=== PATIENT | male | born 1950 | race Two or more races ===

== ENCOUNTER 2017-08-10 20:24 | Inpatient (IN) | payer MEDICAID, OTHER ==
[~2017-08-10] VITALS: Ht 157.5 cm; Wt 70.3 kg
[2017-08-10 20:50] VITALS: BP 148/96
[2017-08-10] MEDS ORDERED: Sodium Chloride 500ML 500 ML IV ONE (20:52)
--- NOTE | 2017-08-10 21:12 | Emergency Room Report ---
History of Present Illness General Chief Complaint: General Complaint Source: Patient Present Illness HPI Patient initially presents with complaints of headache Reports off-and-on over the past several days He has had headaches before in the past Denies any chest pain or shortness of breath However while here patient also reports significant social problems stating that when he lives is not comfortable He is having difficulty going and coming from the facility Patient also complains of some general weakness Allergies: Coded Allergies: No Known Allergies (Unverified , 08/10/17) Patient History Past Medical History: see triage record Pertinent Family History: none Reviewed Nursing Documentation: PMH: Agreed, PSxH: Agreed Nursing Documentation-PMH Hx Cardiac Problems: Yes Hx Pacemaker: Yes Hx Diabetes: Yes Review of Systems All Other Systems: negative except mentioned in HPI Physical Exam Vital Signs Date Time Temp Pulse Resp B/P (MAP) Pulse Ox O2 Delivery O2 Flow Rate FiO2 08/10/17 20:26 98.8 90 16 148/96 99 Room Air Sp02 EP Interpretation: reviewed, normal General Appearance: no apparent distress Head: normocephalic, atraumatic Eyes: bilateral eye PERRL, bilateral eye EOMI ENT: hearing grossly normal, normal pharynx, TMs + canals normal, uvula midline Neck: full range of motion, supple, no meningismus, no bony tend Respiratory: lungs clear, normal breath sounds, no rhonchi, no respiratory distress, no retraction, no accessory muscle use Cardiovascular #1: normal peripheral pulses, regular rate, rhythm, no edema, no gallop, no JVD, no murmur Gastrointestinal: normal bowel sounds, non tender, soft, no mass, no organomegaly, non-distended, no guarding, no hernia, no pulsatile mass, no rebound Genitourinary: no CVA tenderness Musculoskeletal: normal inspection - Arthritic joints, patient and was with a walker no obvious focal deficit on exam Neurologic: oriented x3, responsive, terminal worker III-XII nml as tested, motor strength/ tone normal, sensory intact Psychiatric: mood/affect normal Skin: normal color, no rash, warm/dry, palpation normal Lymphatic: normal inspection, no adenopathy Medical Decision Making Diagnostic Impression: Primary Impression: Renal failure Additional Impressions: Elevated troponin I level Hyperkalemia ER Course Patient is a fairly complex patient with multiple differential to consideration including but not limited to cardiac cardiopulmonary and vascular emergencies Patient's blood work reveals elevated potassium Kidney function is abnormal We do not have any other blood work to compare this to patient is somewhat of a poor historian and cannot provide previous medical history At this time requires admission for further care Labs Test 08/10/17 21:16 White Blood Count 7.4 K/UL (4.8-10.8) Red Blood Count 3.79 M/UL (4.70-6.10) Hemoglobin 10.2 G/DL (14.2-18.0) Hematocrit 33.3 % (42.0-52.0) Mean Corpuscular Volume 88 FL (80-99) Mean Corpuscular Hemoglobin 27.0 PG (27.0-31.0) Mean Corpuscular Hemoglobin Concent 30.8 G/DL (32.0-36.0) Red Cell Distribution Width 13.7 % (11.6-14.8) Platelet Count 161 K/UL (150-450) Mean Platelet Volume 6.7 FL (6.5-10.1) Neutrophils (%) (Auto) 70.1 % (45.0-75.0) Lymphocytes (%) (Auto) 14.4 % (20.0-45.0) Monocytes (%) (Auto) 11.7 % (1.0-10.0) Eosinophils (%) (Auto) 2.4 % (0.0-3.0) Basophils (%) (Auto) 1.4 % (0.0-2.0) Urine Color Pale yellow Urine Appearance Slightly cloudy Urine pH 6 (4.5-8.0) Urine Specific [place] 1.015 (1.005-1.035) Urine Protein 4+ (NEGATIVE) Urine Glucose (UA) 1+ (NEGATIVE) Urine Ketones Negative (NEGATIVE) Urine Occult Blood 3+ (NEGATIVE) Urine Nitrite Negative (NEGATIVE) Urine Bilirubin Negative (NEGATIVE) Urine Urobilinogen Normal MG/DL (0.0-1.0) Urine Leukocyte Esterase Negative (NEGATIVE) Urine RBC 5-10 /HPF (0 - 0) Urine WBC 0 /HPF (0 - 0) Urine Squamous Epithelial Cells None /LPF (NONE/OCC) Urine Amorphous Sediment Many /LPF (NONE) Urine Bacteria Moderate /HPF (NONE) Sodium Level 137 MMOL/L (136-145) Potassium Level 5.2 MMOL/L (3.5-5.1) Chloride Level 106 MMOL/L (98-107) Carbon Dioxide Level 20 MMOL/L (21-32) Anion Gap 11 mmol/L (5-15) Blood Urea Nitrogen 62 mg/dL (7-18) Creatinine 2.3 MG/DL (0.55-1.30) Estimat Glomerular Filtration Rate 28.7 mL/min (>60) Glucose Level 227 MG/DL (74-106) Calcium Level 8.5 MG/DL (8.5-10.1) Total Bilirubin 0.4 MG/DL (0.2-1.0) Aspartate Amino Transf (AST/SGOT) 23 U/L (15-37) Alanine Aminotransferase (ALT/SGPT) 17 U/L (12-78) Alkaline Phosphatase 124 U/L (46-116) Total Creatine Kinase 471 U/L (26-308) Creatine Kinase MB 16.2 NG/ML (0.0-3.6) Creatine Kinase MB Relative Index 3.4 Troponin I 0.389 ng/mL (0.000-0.056) Total Protein 7.9 G/DL (6.4-8.2) Albumin 3.4 G/DL (3.4-5.0) Globulin 4.5 g/dL Albumin/Globulin Ratio 0.8 (1.0-2.7) Lipase 239 U/L (73-393) EKG Diagnostic Results Rate: normal Rhythm: NSR ST Segments: other - Prolonged QRS with left bundle branch block ASA given to the pt in ED: Yes Rhythm Strip Diag. Results EP Interpretation: yes Rate: 77 Rhythm: NSR, no PVC's, no ectopy, other - prolonged QRS Chest X-Ray Diagnostic Results Chest X-Ray Diagnostic Results : Chest X-Ray Ordered: Yes # of Views/Limited/Complete: 1 View Indication: Chest Pain EP Interpretation: Yes Interpretation: no consolidation, no effusion, no pneumothorax Impression: No acute disease Electronically Signed by: John Jaimes DO CT/MRI/US Diagnostic Results CT/MRI/US Diagnostic Results : Impression CT head no acute disease Last Vital Signs Date Time Temp Pulse Resp B/P (MAP) Pulse Ox O2 Delivery O2 Flow Rate FiO2 08/10/17 20:26 98.8 90 16 148/96 99 Room Air Status: improved Disposition: ADMITTED INPATIENT Condition: Improved JOHN JAIMESO. Aug 10, 2017 21:12
[2017-08-10 21:24] LABS: BASOPHILS % (AUTO) 1.4 % (0.0-2.0); EOSINOPHILS % (AUTO) 2.4 % (0.0-3.0); LYMPHOCYTES % (AUTO) 14.4 % (20.0-45.0); MEAN CORPUSCULAR HGB CONC 30.8 G/DL (32.0-36.0); MEAN CORPUSCULAR VOLUME 88 FL (80-99); MEAN PLATELET VOLUME 6.7 FL (6.5-10.1); MONOCYTES % (AUTO) 11.7 % (1.0-10.0); NEUTROPHILS % (AUTO) 70.1 % (45.0-75.0); PLATELET COUNT 161 K/UL (150-450); RED BLOOD COUNT 3.79 M/UL (4.70-6.10); RED CELL DISTRIBUTION WIDTH 13.7 % (11.6-14.8); WHITE BLOOD COUNT 7.4 K/UL (4.8-10.8)
[2017-08-10 21:39] LABS: ANION GAP 11 mmol/L (5-15); CALCIUM 8.5 MG/DL (8.5-10.1); CARBON DIOXIDE 20 MMOL/L (21-32); CHLORIDE 106 MMOL/L (98-107); CREATININE 2.3 MG/DL (0.55-1.30); GLOMERULAR FILTRATION RATE 28.7 mL/min (>60); POTASSIUM 5.2 MMOL/L (3.5-5.1); SODIUM 137 MMOL/L (136-145)
[2017-08-10 21:52] LABS: ALANINE AMINOTRANSFERASE 17 U/L (12-78); ALBUMIN/GLOBULIN RATIO 0.8 (1.0-2.7); ASPARTATE AMINO TRANSFERASE 23 U/L (15-37); CKMB 16.2 NG/ML (0.0-3.6); LIPASE 239 U/L (73-393); TOTAL PROTEIN 7.9 G/DL (6.4-8.2)
[2017-08-10] MEDS ORDERED: Sodium Polystyrene Sulfonate 15gm Powder ORAL ONE (22:45)
[2017-08-10 23:34] VITALS: BP 142/67
[2017-08-11] VITALS (10 sets, daily range): BP systolic 103–175; BP diastolic 65–99
[2017-08-11 00:05] LABS: APPEARANCE,URINE SLIGHTLY CLOUDY; KETONES,URINE NEGATIVE (NEGATIVE); LEUKOCYTE ESTERASE ,URINE NEGATIVE (NEGATIVE); NITRITE,URINE NEGATIVE (NEGATIVE); PH,URINE 6 (4.5-8.0); PROTEIN,URINE 4+ (NEGATIVE); UROBILINOGEN,URINE NORMAL MG/DL (0.0-1.0)
[2017-08-11] MEDS ORDERED: UNOBMED (00:05)
[2017-08-11 00:15] LABS: AMORPHOUS SEDIMENT,UR MANY /LPF; BACTERIA,URINE MODERATE /HPF; WBC,URINE 0 /HPF (0 - 0)
[2017-08-11] MEDS ORDERED: Miralax 17gm pkt ORAL PRN (06:45)
[2017-08-11] MEDS ORDERED: Albuterol/Ipratropium 3ml neb HHN PRN (06:45)
[2017-08-11] MEDS ORDERED: Morphine Sulfate 2mg/ml Inj IVP PRN ×2 (06:45→08:15)
[2017-08-11] MEDS ORDERED: Vancomycin 1 GM in D5W 275 ML IVPB ONE (08:00)
[2017-08-11] MEDS ORDERED: Cefepime HCl 2 GM in D5W 110 ML IV SCH (09:00)
[2017-08-11] MEDS ORDERED: Cefepime 1gm in D5W 55ml IVPB SCH (09:00)
[2017-08-11] MEDS: Heparin 5000 units/ml inj SUBQ SCH ×2 (10:00→21:06)
--- NOTE | 2017-08-11 10:17 | Diagnostic Imaging Report ---
Indication: Headache Technique: Contiguous 5 mm thick transaxial imaging of the head obtained in a Siemens Sensation [address] scanner. Soft tissue and bone windows generated. Automatic Exposure Control was utilized. Total Dose length Product (DLP): [address] Dose Index Volume (CTDIvol): 70.38, 0.15 mGy Comparison: none Findings: There is mild prominence of the ventricles, basal cisterns, and cerebral sulci consistent with atrophy. Mild, nonspecific, white matter hypoattenuation is noted throughout the brain consistent with chronic small vessel disease. There is no midline shift, edema, acute hemorrhage, mass effect, or abnormal extra-axial fluid collections. Bones and extra osseous soft tissues are unremarkable. Impression: No acute intracranial bleed, mass effect or edema. Mild atrophy of the brain. Nonspecific white matter hypoattenuation probably due to chronic small vessel disease. [facility] has communicated the preliminary results to the Emergency Department. Their findings are largely concordant with this report. The CT scanner at [facility] is accredited by the [place] [employer] and the scans are performed using dose optimization techniques as appropriate to a performed exam including Automatic Exposure control.
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
--- NOTE | 2017-08-11 10:47 | Consultation ---
Consult Note Consult Note Asked to eval for high Cr Patient initially presents with complaints of headache Reports off-and-on over the past several days He has had headaches before in the past Denies any chest pain or shortness of breath However while here patient also reports significant social problems stating that when he lives is not comfortable He is having difficulty going and coming from the facility Patient also complains of some general weakness Hx Cardiac Problems: Yes Hx Pacemaker: Yes Hx Diabetes: Yes Assessment/Plan status: Renal failure and proteinuria Likely Diabetic Nephropathy CAD DM HTN Anemia Plan: Change diet to med CHO Gastric support monitor renal parameters- avoid nephrotoxics- Kidney SCARLET 2D echo anemia MOUNIKA De Dios Aug 11, 2017 10:47
--- NOTE | 2017-08-11 12:04 | Diagnostic Imaging Report ---
Indication: Chest pain Comparison: None A single view chest radiograph was obtained. Findings: No definite infiltrate or pulmonary vascular congestion identified. Pacemaker noted on the left side. 2 leads are present one projects over the right atrium and the other projected over the right ventricle. The heart is enlarged. The aorta is mildly enlarged consistent with atherosclerotic vascular disease. The bones are osteopenic. Impression: No acute disease
[2017-08-11] MEDS: Docusate 100mg cap ORAL SCH ×2 (12:12→17:32)
--- NOTE | 2017-08-11 12:40 | History and Physical ---
History of Present Illness General Date patient seen: Aug 11, 2017 Reason for Hospitalization: General Complaint Present Illness HPI 67 year old male with hx of DM, pacemaker presented to ER with complaints of headache, off-and-on over the past several days Patient also complains of some general weakness. He was found to be in renal failure and positive troponin. Allergies: Coded Allergies: No Known Allergies (Unverified , 08/10/17) Medication History Miscellaneous Medications Unable to Obtain Medications (Unable To Obtain Meds), (Reported) Patient History Healthcare decision maker Resuscitation status Full Code Advanced Directive on File Past Medical/Surgical History Past Medical/Surgical History: (1) History of pacemaker Review of Systems Constitutional: Reports: malaise, weakness All Other Systems: negative except mentioned in HPI Physical Exam General Appearance: WD/WN Lines, tubes and drains: peripheral, PICC HEENT: normocephalic, atraumatic Neck: non-tender, normal alignment Respiratory/Chest: chest wall non-tender, lungs clear Breasts: no masses Cardiovascular/Chest: normal peripheral pulses Abdomen: normal bowel sounds Genitourinary/Rectal: normal genital exam, heme negative stool Extremities: normal range of motion Last 24 Hour Vital Signs Date Time Temp Pulse Resp B/P (MAP) Pulse Ox O2 Delivery O2 Flow Rate FiO2 08/11/17 12:00 97.5 84 19 141/91 Nasal Cannula 2.0 08/11/17 08:00 97.0 85 19 154/72 98 Nasal Cannula 2.0 08/11/17 04:40 98.6 65 18 147/74 96 Nasal Cannula 08/11/17 04:20 97.0 74 20 103/65 96 Room Air 08/11/17 04:00 73 08/11/17 01:35 98.8 82 12 145/75 98 Room Air 08/11/17 01:30 98.5 78 18 155/67 99 Room Air 08/11/17 00:57 98.8 82 12 156/75 98 Room Air 08/11/17 00:18 98.8 90 16 162/83 99 Room Air 08/10/17 23:34 98.8 88 20 142/67 95 Room Air 08/10/17 20:50 98.8 16 148/96 99 Room Air 08/10/17 20:26 98.8 90 16 148/96 99 Room Air Laboratory Tests Test 08/10/17 21:16 08/11/17 07:20 White Blood Count 7.4 K/UL (4.8-10.8) Red Blood Count 3.79 M/UL (4.70-6.10) L Hemoglobin 10.2 G/DL (14.2-18.0) L Hematocrit 33.3 % (42.0-52.0) L Mean Corpuscular Volume 88 FL (80-99) Mean Corpuscular Hemoglobin 27.0 PG (27.0-31.0) Mean Corpuscular Hemoglobin Concent 30.8 G/DL (32.0-36.0) L Red Cell Distribution Width 13.7 % (11.6-14.8) Platelet Count 161 K/UL (150-450) Mean Platelet Volume 6.7 FL (6.5-10.1) Neutrophils (%) (Auto) 70.1 % (45.0-75.0) Lymphocytes (%) (Auto) 14.4 % (20.0-45.0) L Monocytes (%) (Auto) 11.7 % (1.0-10.0) H Eosinophils (%) (Auto) 2.4 % (0.0-3.0) Basophils (%) (Auto) 1.4 % (0.0-2.0) Urine Color Pale yellow Urine Appearance Slightly cloudy Urine pH 6 (4.5-8.0) Urine Specific [place] 1.015 (1.005-1.035) Urine Protein 4+ (NEGATIVE) H Urine Glucose (UA) 1+ (NEGATIVE) H Urine Ketones Negative (NEGATIVE) Urine Occult Blood 3+ (NEGATIVE) H Urine Nitrite Negative (NEGATIVE) Urine Bilirubin Negative (NEGATIVE) Urine Urobilinogen Normal MG/DL (0.0-1.0) Urine Leukocyte Esterase Negative (NEGATIVE) Urine RBC 5-10 /HPF (0 - 0) H Urine WBC 0 /HPF (0 - 0) Urine Squamous Epithelial Cells None /LPF (NONE/OCC) Urine Amorphous Sediment Many /LPF (NONE) H Urine Bacteria Moderate /HPF (NONE) H Sodium Level 137 MMOL/L (136-145) Potassium Level 5.2 MMOL/L (3.5-5.1) H Chloride Level 106 MMOL/L (98-107) Carbon Dioxide Level 20 MMOL/L (21-32) L Anion Gap 11 mmol/L (5-15) Blood Urea Nitrogen 62 mg/dL (7-18) H Creatinine 2.3 MG/DL (0.55-1.30) H Estimat Glomerular Filtration Rate 28.7 mL/min (>60) Glucose Level 227 MG/DL (74-106) H Calcium Level 8.5 MG/DL (8.5-10.1) Total Bilirubin 0.4 MG/DL (0.2-1.0) Aspartate Amino Transf (AST/SGOT) 23 U/L (15-37) Alanine Aminotransferase (ALT/SGPT) 17 U/L (12-78) Alkaline Phosphatase 124 U/L (46-116) H Total Creatine Kinase 471 U/L (26-308) H 336 U/L (26-308) H Creatine Kinase MB 16.2 NG/ML (0.0-3.6) H Creatine Kinase MB Relative Index 3.4 Troponin I 0.389 ng/mL (0.000-0.056) Total Protein 7.9 G/DL (6.4-8.2) Albumin 3.4 G/DL (3.4-5.0) Globulin 4.5 g/dL Albumin/Globulin Ratio 0.8 (1.0-2.7) L Lipase 239 U/L (73-393) Uric Acid 6.0 MG/DL (2.6-7.2) Height (Feet): 5 Height (Inches): 2.00 Weight (Pounds): 155 Medications Current Medications Medications (Trade) Dose Ordered Sig/Arlet Route PRN Reason Start Time Stop Time Status Last Admin Dose Admin Acetaminophen (Tylenol) 650 mg Q4H PRN ORAL fever 08/11/17 06:45 09/10/17 06:44 Albuterol/ Ipratropium (Albuterol/ Ipratropium) 3 ml EVERY 4 HOURS PRN HHN Shortness of Breath 08/11/17 06:45 08/16/17 06:44 Cefepime HCl 1 gm/ Dextrose 55 ml @ 110 mls/hr DAILY IVPB 08/11/17 09:00 08/18/17 08:59 08/11/17 09:56 Docusate Sodium (Colace) 100 mg TWICE A DAY ORAL 08/11/17 11:15 09/10/17 11:14 08/11/17 12:12 Heparin Sodium (Porcine) (Heparin 5000 units/ml) 5,000 units EVERY 12 HOURS SUBQ 08/11/17 09:00 09/10/17 08:59 08/11/17 10:00 Lansoprazole (Prevacid) 30 mg DAILY ORAL 08/11/17 11:30 09/10/17 11:29 08/11/17 12:12 Morphine Sulfate (Morphine Sulfate) 2 mg Q4H PRN IVP Moderate Pain (Pain Scale 4-6) 08/11/17 08:15 08/18/17 06:44 Ondansetron HCl (Zofran) 4 mg Q6H PRN IVP Nausea & Vomiting 08/11/17 06:45 09/10/17 06:44 Phenazopyridine HCl (Pyridium) 100 mg DAILY PRN ORAL dysuria 08/11/17 06:45 09/10/17 06:44 Polyethylene Glycol (Miralax) 17 gm DAILYPRN PRN ORAL Constipation 08/11/17 06:45 09/10/17 06:44 Sodium Chloride 1,000 ml @ 75 mls/hr [id number] IV 08/11/17 06:45 09/10/17 06:44 08/11/17 09:57 Tamsulosin HCl (Flomax) 0.4 mg BEDTIME ORAL 08/11/17 21:00 09/10/17 20:59 Temazepam (Restoril) 15 mg HSPRN PRN ORAL Insomnia 08/11/17 06:45 08/18/17 06:44 Vancomycin HCl 1 gm/Dextrose 275 ml @ 183.708 mls/hr Q36H IVPB 08/12/17 20:00 08/17/17 19:59 Assessment/Plan Problem List: (1) UTI (urinary tract infection) ICD Codes: N39.0 - Urinary tract infection, site not specified SNOMED: 10948519 (2) Non-ST elevated myocardial infarction ICD Codes: I21.4 - Non-ST elevation (NSTEMI) myocardial infarction SNOMED: 338540440 (3) Hyperkalemia ICD Codes: E87.5 - Hyperkalemia SNOMED: 38456121 (4) Renal failure ICD Codes: N19 - Unspecified kidney failure SNOMED: 49398404 (5) History of pacemaker ICD Codes: Z95.0 - Presence of cardiac pacemaker SNOMED: 814489533 Assessment/Plan serial ekg, troponin cardiology to see check K Renal and Cardio to see. MADHAV WALLACE Aug 11, 2017 12:40
--- NOTE | 2017-08-11 13:21 | Cardiology Progress Note ---
Assessment/Plan Assessment/Plan [id number] Objective Last 24 Hour Vital Signs Date Time Temp Pulse Resp B/P (MAP) Pulse Ox O2 Delivery O2 Flow Rate FiO2 08/11/17 12:00 97.5 84 19 141/91 Nasal Cannula 2.0 08/11/17 08:00 97.0 85 19 154/72 98 Nasal Cannula 2.0 08/11/17 04:40 98.6 65 18 147/74 96 Nasal Cannula 08/11/17 04:20 97.0 74 20 103/65 96 Room Air 08/11/17 04:00 73 08/11/17 01:35 98.8 82 12 145/75 98 Room Air 08/11/17 01:30 98.5 78 18 155/67 99 Room Air 08/11/17 00:57 98.8 82 12 156/75 98 Room Air 08/11/17 00:18 98.8 90 16 162/83 99 Room Air 08/10/17 23:34 98.8 88 20 142/67 95 Room Air 08/10/17 20:50 98.8 16 148/96 99 Room Air 08/10/17 20:26 98.8 90 16 148/96 99 Room Air Laboratory Tests Test 08/10/17 21:16 08/11/17 07:20 White Blood Count 7.4 K/UL (4.8-10.8) Red Blood Count 3.79 M/UL (4.70-6.10) L Hemoglobin 10.2 G/DL (14.2-18.0) L Hematocrit 33.3 % (42.0-52.0) L Mean Corpuscular Volume 88 FL (80-99) Mean Corpuscular Hemoglobin 27.0 PG (27.0-31.0) Mean Corpuscular Hemoglobin Concent 30.8 G/DL (32.0-36.0) L Red Cell Distribution Width 13.7 % (11.6-14.8) Platelet Count 161 K/UL (150-450) Mean Platelet Volume 6.7 FL (6.5-10.1) Neutrophils (%) (Auto) 70.1 % (45.0-75.0) Lymphocytes (%) (Auto) 14.4 % (20.0-45.0) L Monocytes (%) (Auto) 11.7 % (1.0-10.0) H Eosinophils (%) (Auto) 2.4 % (0.0-3.0) Basophils (%) (Auto) 1.4 % (0.0-2.0) Urine Color Pale yellow Urine Appearance Slightly cloudy Urine pH 6 (4.5-8.0) Urine Specific [place] 1.015 (1.005-1.035) Urine Protein 4+ (NEGATIVE) H Urine Glucose (UA) 1+ (NEGATIVE) H Urine Ketones Negative (NEGATIVE) Urine Occult Blood 3+ (NEGATIVE) H Urine Nitrite Negative (NEGATIVE) Urine Bilirubin Negative (NEGATIVE) Urine Urobilinogen Normal MG/DL (0.0-1.0) Urine Leukocyte Esterase Negative (NEGATIVE) Urine RBC 5-10 /HPF (0 - 0) H Urine WBC 0 /HPF (0 - 0) Urine Squamous Epithelial Cells None /LPF (NONE/OCC) Urine Amorphous Sediment Many /LPF (NONE) H Urine Bacteria Moderate /HPF (NONE) H Sodium Level 137 MMOL/L (136-145) Potassium Level 5.2 MMOL/L (3.5-5.1) H Chloride Level 106 MMOL/L (98-107) Carbon Dioxide Level 20 MMOL/L (21-32) L Anion Gap 11 mmol/L (5-15) Blood Urea Nitrogen 62 mg/dL (7-18) H Creatinine 2.3 MG/DL (0.55-1.30) H Estimat Glomerular Filtration Rate 28.7 mL/min (>60) Glucose Level 227 MG/DL (74-106) H Calcium Level 8.5 MG/DL (8.5-10.1) Total Bilirubin 0.4 MG/DL (0.2-1.0) Aspartate Amino Transf (AST/SGOT) 23 U/L (15-37) Alanine Aminotransferase (ALT/SGPT) 17 U/L (12-78) Alkaline Phosphatase 124 U/L (46-116) H Total Creatine Kinase 471 U/L (26-308) H 336 U/L (26-308) H Creatine Kinase MB 16.2 NG/ML (0.0-3.6) H Creatine Kinase MB Relative Index 3.4 Troponin I 0.389 ng/mL (0.000-0.056) Total Protein 7.9 G/DL (6.4-8.2) Albumin 3.4 G/DL (3.4-5.0) Globulin 4.5 g/dL Albumin/Globulin Ratio 0.8 (1.0-2.7) L Lipase 239 U/L (73-393) Uric Acid 6.0 MG/DL (2.6-7.2) KHURRAM SAN Aug 11, 2017 13:21
--- NOTE | 2017-08-11 15:03 | Cardiology Report ---
APPROVED REPORT EXAM: Two-dimensional and M-mode echocardiogram with Doppler and color Doppler. INDICATION Congestive Heart Failure M-Mode DIMENSIONS Left Atrium (MM)4.3 (1.6-4.0cm) Aortic Root3.7 (2.0-3.7cm) Aortic Cusp Exc.2.0 (1.5-2.0cm) Technically difficult study due to poor acoustical windows. M-mode measurements not obtainable due to cardiac structure. Normal left ventricular chamber size, systolic function and wall motion. Left ventricular ejection fraction estimated to be 65-7%. No evidence of left ventricular hypertrophy. Small posterior pericardial effusion. All other cardiac chamber sizes are within normal limits. Focal aortic valve sclerosis with adequate cusp excursion. Thickened mitral valve leaflets with normal excursion. Mild mitral annulus and aortic root calcification. Pulmonic valve not well visualized. Normal tricuspid valve structure. IVC is normal in size and collapsible with respiration. pacemaker wire present in the right side chambers. A color flow and spectral Doppler study was performed and revealed: No aortic regurgitation. No mitral regurgitation. Mitral diastolic velocities suggest reduced left ventricular relaxation c/w diastolic dysfunction grade 1. No tricuspid regurgitation.
--- NOTE | 2017-08-11 15:36 | Cardiology Report ---
APPROVED REPORT EKG Measurement Heart [id number] Normal sinus rhythm Left axis deviation v pacing
[2017-08-11] MEDS ORDERED: Tamsulosin 0.4mg cap ORAL SCH (21:00)
[2017-08-11] MEDS: NovoLOG Insulin Flexpen SUBQ SCH (21:05)
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
[2017-08-12 00:37] VITALS: BP 156/89
[2017-08-12 04:26] VITALS: BP 150/78
[2017-08-12] MEDS: NovoLOG Insulin Flexpen SUBQ SCH ×4 (06:27→21:41)
[2017-08-12 06:34] LABS: BASOPHILS % (AUTO) 0.9 % (0.0-2.0); EOSINOPHILS % (AUTO) 4.2 % (0.0-3.0); MEAN CORPUSCULAR HEMOGLOBIN 30.4 PG (27.0-31.0); MEAN CORPUSCULAR HGB CONC 34.7 G/DL (32.0-36.0); MEAN CORPUSCULAR VOLUME 88 FL (80-99); MEAN PLATELET VOLUME 7.5 FL (6.5-10.1); MONOCYTES % (AUTO) 9.4 % (1.0-10.0); NEUTROPHILS % (AUTO) 65.5 % (45.0-75.0); PLATELET COUNT 162 K/UL (150-450); RED BLOOD COUNT 3.24 M/UL (4.70-6.10); RED CELL DISTRIBUTION WIDTH 14.3 % (11.6-14.8); WHITE BLOOD COUNT 6.1 K/UL (4.8-10.8)
[2017-08-12 07:22] LABS: IRON 30 ug/dL (50-175); TOTAL IRON BINDING CAPACITY 242 ug/dL (250-450)
[2017-08-12 07:26] LABS: CRP QUANT 3.7 mg/dL (0.00-0.90); MAGNESIUM 2.3 MG/DL (1.8-2.4); PHOSPHORUS 3.8 MG/DL (2.5-4.9); URIC ACID 5.6 MG/DL (2.6-7.2)
[2017-08-12 07:40] LABS: ALANINE AMINOTRANSFERASE 17 U/L (12-78); ALBUMIN/GLOBULIN RATIO 0.7 (1.0-2.7); ANION GAP 9 mmol/L (5-15); ASPARTATE AMINO TRANSFERASE 17 U/L (15-37); CARBON DIOXIDE 24 MMOL/L (21-32); CHLORIDE 111 MMOL/L (98-107); CHOLESTEROL 140 MG/DL (< 200); CHOLESTEROL/HDL RATIO 1.9 (3.3-4.4); CREATININE 1.9 MG/DL (0.55-1.30); FERRITIN 82 NG/ML (8-388); GLOMERULAR FILTRATION RATE 35.8 mL/min (>60); POTASSIUM 3.6 MMOL/L (3.5-5.1); SODIUM 144 MMOL/L (136-145); THYROID STIMULATING HORMONE 2.004 uiU/mL (0.358-3.740); TOTAL PROTEIN 6.8 G/DL (6.4-8.2)
[2017-08-12 07:51] LABS: FOLIC ACID 14.2 NG/ML (3.1-17.5)
[2017-08-12 08:59] VITALS: BP 157/81
[2017-08-12] MEDS: Docusate 100mg cap ORAL SCH ×3 (09:26→17:21)
[2017-08-12] MEDS: Heparin 5000 units/ml inj SUBQ SCH ×2 (09:29→21:38)
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
--- NOTE | 2017-08-12 11:24 | Nephrology Progress Note ---
Assessment/Plan Problem List: (1) Renal failure (2) Non-ST elevated myocardial infarction (3) Elevated troponin I level Assessment Renal failure and proteinuria Likely Diabetic Nephropathy CAD DM HTN Anemia Plan Plan: IV iron Change diet to med CHO Gastric support monitor renal parameters- avoid nephrotoxics- Kidney SCARLET: pending 2D echo: Left ventricular ejection fraction estimated to be 65-7%. No evidence of left ventricular hypertrophy. anemia mejia Subjective ROS Limited/Unobtainable: No Constitutional: Reports: malaise Objective Objective Last 24 Hour Vital Signs Date Time Temp Pulse Resp B/P (MAP) Pulse Ox O2 Delivery O2 Flow Rate FiO2 08/12/17 08:59 97.7 101 18 157/81 99 Room Air 08/12/17 08:00 101 08/12/17 07:55 99 20 Room Air 21 08/12/17 04:26 98.1 97 20 150/78 91 Room Air 08/12/17 04:00 95 08/12/17 00:37 97.3 100 23 156/89 94 Room Air 08/12/17 00:00 101 08/11/17 22:00 99 18 151/74 99 Room Air 08/11/17 20:00 97.0 100 22 175/99 99 Room Air 08/11/17 20:00 92 20 Room Air 21 08/11/17 20:00 105 08/11/17 16:00 100 08/11/17 16:00 98.1 101 20 153/87 97 Nasal Cannula 2.0 08/11/17 12:00 86 08/11/17 12:00 97.5 84 19 141/91 Nasal Cannula 2.0 Intake and Output 08/12/17 08/13/17 19:00 07:00 Intake Total 360 ml Balance 360 ml Intake Oral 360 ml # Bowel Movements 1 Laboratory Tests 08/11/17 13:34: Troponin I 0.404H 08/12/17 05:10: Troponin I 0.578H, White Blood Count 6.1, Red Blood Count 3.24L, Hemoglobin 9.8L , Hematocrit 28.4L, Mean Corpuscular Volume 88, Mean Corpuscular Hemoglobin 30.4 , Mean Corpuscular Hemoglobin Concent 34.7, Red Cell Distribution Width 14.3, Platelet Count 162, Mean Platelet Volume 7.5, Neutrophils (%) (Auto) 65.5, Lymphocytes (%) (Auto) 20.0, Monocytes (%) (Auto) 9.4, Eosinophils (%) (Auto) 4.2H, Basophils (%) (Auto) 0.9, Sodium Level 144, Potassium Level 3.6, Chloride Level 111H, Carbon Dioxide Level 24, Anion Gap 9, Blood Urea Nitrogen 41H, Creatinine 1.9H, Estimat Glomerular Filtration Rate 35.8, Glucose Level 175H, Hemoglobin A1c 7.0H, Uric Acid 5.6, Calcium Level 8.0L, Phosphorus Level 3.8, Magnesium Level 2.3, Iron Level 30L, Total Iron Binding Capacity 242L, Percent Iron Saturation 12L, Unsaturated Iron Binding 212, Ferritin 82, Total Bilirubin 0.3, Gamma Glutamyl Transpeptidase 23, Aspartate Amino Transf (AST/SGOT) 17, Alanine Aminotransferase (ALT/SGPT) 17, Alkaline Phosphatase 106, Total Creatine Kinase 224, C-Reactive Protein, Quantitative 3.7H, Pro-B-Type Natriuretic Peptide 4235H, Total Protein 6.8, Albumin 2.7L, Globulin 4.1, Albumin/Globulin Ratio 0.7L, Triglycerides Level 93, Cholesterol Level 140, LDL Cholesterol 58, HDL Cholesterol 73H, Cholesterol/HDL Ratio 1.9L, Folate 14.2, Thyroid Stimulating Hormone (TSH) 2.004 Height (Feet): 5 Height (Inches): 2.00 Weight (Pounds): 155 General Appearance: no apparent distress Objective PE not changed MOUNIKA CORDERO Aug 12, 2017 11:24
[2017-08-12] MEDS ORDERED: Metoprolol 25mg tab ORAL ONE (11:30)
--- NOTE | 2017-08-12 12:08 | Pulmonology Progress Note ---
Assessment/Plan Problems: (1) UTI (urinary tract infection) (2) Non-ST elevated myocardial infarction (3) Hyperkalemia (4) Renal failure (5) History of pacemaker Assessment/Plan awaiting psych evaluation continue abx social service consult check cultures pt/ot Subjective Interval Events: c/o of pain all over the body Allergies: Coded Allergies: No Known Allergies (Unverified , 08/10/17) Objective Last 24 Hour Vital Signs Date Time Temp Pulse Resp B/P (MAP) Pulse Ox O2 Delivery O2 Flow Rate FiO2 08/12/17 08:59 97.7 101 18 157/81 99 Room Air 08/12/17 08:00 101 08/12/17 07:55 99 20 Room Air 21 08/12/17 04:26 98.1 97 20 150/78 91 Room Air 08/12/17 04:00 95 08/12/17 00:37 97.3 100 23 156/89 94 Room Air 08/12/17 00:00 101 08/11/17 22:00 99 18 151/74 99 Room Air 08/11/17 20:00 97.0 100 22 175/99 99 Room Air 08/11/17 20:00 92 20 Room Air 21 08/11/17 20:00 105 08/11/17 16:00 100 08/11/17 16:00 98.1 101 20 153/87 97 Nasal Cannula 2.0 Intake and Output 08/12/17 08/13/17 19:00 07:00 Intake Total 360 ml Balance 360 ml Intake Oral 360 ml # Bowel Movements 1 General Appearance: WD/WN HEENT: normocephalic, anicteric Respiratory/Chest: chest wall non-tender, lungs clear Cardiovascular: normal peripheral pulses, normal rate Abdomen: normal bowel sounds, soft, non tender Extremities: no cyanosis, no clubbing Skin: no lesions Microbiology Date/Time Source Procedure Growth Status 08/10/17 21:16 Urine,Clean Catch Urine Culture - Preliminary NO GROWTH AFTER 24 HOURS Resulted Laboratory Tests 08/11/17 13:34: Troponin I 0.404H 08/12/17 05:10: Troponin I 0.578H, White Blood Count 6.1, Red Blood Count 3.24L, Hemoglobin 9.8L , Hematocrit 28.4L, Mean Corpuscular Volume 88, Mean Corpuscular Hemoglobin 30.4 , Mean Corpuscular Hemoglobin Concent 34.7, Red Cell Distribution Width 14.3, Platelet Count 162, Mean Platelet Volume 7.5, Neutrophils (%) (Auto) 65.5, Lymphocytes (%) (Auto) 20.0, Monocytes (%) (Auto) 9.4, Eosinophils (%) (Auto) 4.2H, Basophils (%) (Auto) 0.9, Sodium Level 144, Potassium Level 3.6, Chloride Level 111H, Carbon Dioxide Level 24, Anion Gap 9, Blood Urea Nitrogen 41H, Creatinine 1.9H, Estimat Glomerular Filtration Rate 35.8, Glucose Level 175H, Hemoglobin A1c 7.0H, Uric Acid 5.6, Calcium Level 8.0L, Phosphorus Level 3.8, Magnesium Level 2.3, Iron Level 30L, Total Iron Binding Capacity 242L, Percent Iron Saturation 12L, Unsaturated Iron Binding 212, Ferritin 82, Total Bilirubin 0.3, Gamma Glutamyl Transpeptidase 23, Aspartate Amino Transf (AST/SGOT) 17, Alanine Aminotransferase (ALT/SGPT) 17, Alkaline Phosphatase 106, Total Creatine Kinase 224, C-Reactive Protein, Quantitative 3.7H, Pro-B-Type Natriuretic Peptide 4235H, Total Protein 6.8, Albumin 2.7L, Globulin 4.1, Albumin/Globulin Ratio 0.7L, Triglycerides Level 93, Cholesterol Level 140, LDL Cholesterol 58, HDL Cholesterol 73H, Cholesterol/HDL Ratio 1.9L, Folate 14.2, Thyroid Stimulating Hormone (TSH) 2.004 Current Medications Medications (Trade) Dose Ordered Sig/Arlet Route PRN Reason Start Time Stop Time Status Last Admin Dose Admin Acetaminophen (Tylenol) 650 mg Q4H PRN ORAL fever 08/11/17 06:45 09/10/17 06:44 Albuterol/ Ipratropium (Albuterol/ Ipratropium) 3 ml EVERY 4 HOURS PRN HHN Shortness of Breath 08/11/17 06:45 08/16/17 06:44 Dextrose (Dextrose 50%) STAT PRN IV Hypoglycemia 08/11/17 17:30 09/10/17 17:29 Docusate Sodium (Colace) 100 mg TID ORAL 08/12/17 13:00 09/10/17 11:14 Heparin Sodium (Porcine) (Heparin 5000 units/ml) 5,000 units EVERY 12 HOURS SUBQ 08/11/17 09:00 09/10/17 08:59 08/12/17 09:29 Insulin Aspart (NovoLOG) BEFORE MEALS AND HS SUBQ 08/11/17 21:00 09/10/17 20:59 08/12/17 06:27 Iron Sucrose 200 mg/Sodium Chloride 120 ml @ 240 mls/hr ONCE ONCE IV 08/12/17 21:00 08/12/17 21:29 Lansoprazole (Prevacid) 30 mg DAILY ORAL 08/11/17 11:30 09/10/17 11:29 08/12/17 09:26 Metoprolol Tartrate (Lopressor) 25 mg Q12HR ORAL 08/12/17 21:00 09/11/17 20:59 Morphine Sulfate (Morphine Sulfate) 2 mg Q4H PRN IVP Moderate Pain (Pain Scale 4-6) 08/11/17 08:15 08/18/17 06:44 Ondansetron HCl (Zofran) 4 mg Q6H PRN IVP Nausea & Vomiting 08/11/17 06:45 09/10/17 06:44 Phenazopyridine HCl (Pyridium) 100 mg DAILY PRN ORAL dysuria 08/11/17 06:45 09/10/17 06:44 Polyethylene Glycol (Miralax) 17 gm DAILYPRN PRN ORAL Constipation 08/11/17 06:45 09/10/17 06:44 Sodium Chloride 1,000 ml @ 75 mls/hr [id number] IV 08/11/17 06:45 09/10/17 06:44 08/12/17 09:39 Tamsulosin HCl (Flomax) 0.4 mg BID ORAL 08/12/17 18:00 09/10/17 20:59 Temazepam (Restoril) 15 mg HSPRN PRN ORAL Insomnia 08/11/17 06:45 08/18/17 06:44 MADHAV WALLACE Aug 12, 2017 12:08
[2017-08-12 12:45] VITALS: BP 155/90
[2017-08-12 12:50] LABS: URIC ACID 5.5 MG/DL (2.6-7.2)
[2017-08-12 16:15] VITALS: BP 146/84
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
[2017-08-12] MEDS ORDERED: Tamsulosin 0.4mg cap ORAL SCH (18:00)
[2017-08-12 20:00] VITALS: BP 142/74
[2017-08-12] MEDS ORDERED: Vancomycin 1gm in D5W 275ml IVPB SCH (20:00)
[2017-08-12] MEDS ORDERED: Iron Sucrose 200 MG in NS 110 ML IV ONE ×4 (21:00)
[2017-08-12] MEDS ORDERED: Metoprolol 25mg tab ORAL SCH (21:00)
[2017-08-12] MEDS ORDERED: Morphine Sulfate 2mg/ml Inj IVP PRN (21:00)
[2017-08-12] MEDS ORDERED: Miralax 17gm pkt ORAL PRN (21:00)
[2017-08-12] MEDS: Metoprolol 25mg tab ORAL SCH (21:37)
[2017-08-13] VITALS: BP 137/74
[2017-08-13 04:00] VITALS: BP 131/68
[2017-08-13] MEDS: NovoLOG Insulin Flexpen SUBQ SCH ×4 (06:03→20:14)
[2017-08-13 07:20] LABS: BASOPHILS % (AUTO) 1.3 % (0.0-2.0); EOSINOPHILS % (AUTO) 6.3 % (0.0-3.0); LYMPHOCYTES % (AUTO) 20.4 % (20.0-45.0); MEAN CORPUSCULAR HEMOGLOBIN 30.2 PG (27.0-31.0); MEAN CORPUSCULAR HGB CONC 34.5 G/DL (32.0-36.0); MEAN CORPUSCULAR VOLUME 88 FL (80-99); MEAN PLATELET VOLUME 7.3 FL (6.5-10.1); PLATELET COUNT 170 K/UL (150-450); RED BLOOD COUNT 3.01 M/UL (4.70-6.10); RED CELL DISTRIBUTION WIDTH 13.8 % (11.6-14.8); WHITE BLOOD COUNT 5.6 K/UL (4.8-10.8)
[2017-08-13 07:23] LABS: INR 0.9 (0.9-1.1); PROTHROMBIN TIME 9.9 SEC (9.30-11.50)
[2017-08-13 07:33] LABS: LACTATE DEHYDROGENASE 247 U/L (81-234)
[2017-08-13 07:44] LABS: FOLIC ACID 16.3 NG/ML (3.1-17.5); IRON 231 ug/dL (50-175); TOTAL IRON BINDING CAPACITY 246 ug/dL (250-450)
[2017-08-13 08:07] VITALS: BP 147/75
[2017-08-13] MEDS: Docusate 100mg cap ORAL SCH ×3 (08:31→18:19)
[2017-08-13] MEDS: Tamsulosin 0.4mg cap ORAL SCH ×2 (08:31→18:19)
[2017-08-13] MEDS: Metoprolol 25mg tab ORAL SCH ×2 (08:31→20:12)
[2017-08-13] MEDS: Heparin 5000 units/ml inj SUBQ SCH ×2 (08:34→20:13)
[2017-08-13 08:35] LABS: ERYTHROCYTE SEDIMENTATION RATE 67 MM/HR (0-20); PATH BLOOD SMEAR/OMC SENT TO PATHOLOGIST; RETICULOCYTE COUNT 1.3 % (0.0-2.0)
--- NOTE | 2017-08-13 08:42 | Diagnostic Imaging Report ---
Indication: Decreased renal function. Technique: Renal ultrasound Findings: Kidneys: The kidneys are normal in size and echogenicity. There is no hydronephrosis. No perinephric fluid is identified. There is a hypoechoic area, not clearly cystic, in the left kidney measuring 3.3 cm. IVC: The visualized portion of the inferior vena cava appears normal. Bladder: The bladder is unremarkable. Impression: Isoechoic area in the left kidney which does not appear cystic. Possibilities include mass or infection. Further evaluation with contrast-enhanced CT suggested if the patient is able. If not, MRI may be obtained.
[2017-08-13 09:11] LABS: ANION GAP 12 mmol/L (5-15); CALCIUM 7.9 MG/DL (8.5-10.1); CARBON DIOXIDE 20 MMOL/L (21-32); CHLORIDE 113 MMOL/L (98-107); CREATININE 1.8 MG/DL (0.55-1.30); GLOMERULAR FILTRATION RATE 38.1 mL/min (>60); POTASSIUM 3.8 MMOL/L (3.5-5.1); SODIUM 145 MMOL/L (136-145)
[2017-08-13 09:17] LABS: ALANINE AMINOTRANSFERASE 12 U/L (12-78); ALBUMIN/GLOBULIN RATIO 0.7 (1.0-2.7); ASPARTATE AMINO TRANSFERASE 19 U/L (15-37); MAGNESIUM 2.1 MG/DL (1.8-2.4); PHOSPHORUS 3.5 MG/DL (2.5-4.9); TOTAL PROTEIN 6.2 G/DL (6.4-8.2)
--- NOTE | 2017-08-13 09:33 | Nephrology Progress Note ---
Assessment/Plan Problem List: (1) Renal failure (2) Non-ST elevated myocardial infarction (3) Elevated troponin I level Assessment Renal failure and proteinuria Likely Diabetic Nephropathy CAD DM HTN Anemia Plan Plan: IV iron Change diet to med CHO Gastric support monitor renal parameters- avoid nephrotoxics- Kidney SCARLET: pending 2D echo: Left ventricular ejection fraction estimated to be 65-7%. No evidence of left ventricular hypertrophy. anemia mejia Subjective ROS Limited/Unobtainable: No Constitutional: Reports: malaise Objective Objective Last 24 Hour Vital Signs Date Time Temp Pulse Resp B/P (MAP) Pulse Ox O2 Delivery O2 Flow Rate FiO2 08/13/17 08:31 71 147/75 08/13/17 08:07 97.6 71 20 147/75 96 Room Air 08/13/17 07:40 90 20 Room Air 08/13/17 04:00 98.0 76 20 131/68 97 Room Air 08/13/17 00:00 98.1 77 20 137/74 95 Room Air 08/12/17 21:37 94 146/84 08/12/17 20:00 97.8 79 20 142/74 95 Room Air 08/12/17 20:00 86 08/12/17 19:30 94 20 Room Air 21 08/12/17 16:15 98.1 70 18 146/84 99 Room Air 08/12/17 16:00 81 08/12/17 12:45 97.5 91 18 155/90 100 Room Air 08/12/17 12:15 101 157/81 08/12/17 12:00 93 Intake and Output 08/13/17 08/14/17 19:00 07:00 Intake Total 240 ml Output Total 200 ml Balance 40 ml Intake Oral 240 ml Output Urine Total 200 ml # Voids 1 Laboratory Tests 08/13/17 05:00: White Blood Count 5.6, Red Blood Count 3.01L, Hemoglobin 9.1L, Hematocrit 26.4L , Mean Corpuscular Volume 88, Mean Corpuscular Hemoglobin 30.2, Mean Corpuscular Hemoglobin Concent 34.5, Red Cell Distribution Width 13.8, Platelet Count 170, Mean Platelet Volume 7.3, Neutrophils (%) (Auto) 62.0, Lymphocytes (% ) (Auto) 20.4, Monocytes (%) (Auto) 10.0, Eosinophils (%) (Auto) 6.3H, Basophils (%) (Auto) 1.3, Erythrocyte Sedimentation Rate 67H, Reticulocyte Count 1.3, Prothrombin Time 9.9, Prothromb Time International Ratio 0.9, Activated Partial Thromboplast Time 35H, Sodium Level 145, Potassium Level 3.8, Chloride Level 113H, Carbon Dioxide Level 20L, Anion Gap 12, Blood Urea Nitrogen 39H, Creatinine 1.8H, Estimat Glomerular Filtration Rate 38.1, Glucose Level 128H, Calcium Level 7.9L, Phosphorus Level 3.5, Magnesium Level 2.1, Iron Level 231H, Total Iron Binding Capacity 246L, Percent Iron Saturation 94H, Unsaturated Iron Binding 15L, Total Bilirubin 0.4, Aspartate Amino Transf (AST/ SGOT) 19, Alanine Aminotransferase (ALT/SGPT) 12, Alkaline Phosphatase 85, Lactate Dehydrogenase 247H, Total Protein 6.2L, Albumin 2.5L, Globulin 3.7, Albumin/Globulin Ratio 0.7L, Vitamin B12 Level 353, Folate 16.3 Height (Feet): 5 Height (Inches): 2.00 Weight (Pounds): 155 General Appearance: no apparent distress Objective PE not changed MOUNIKA CORDERO Aug 13, 2017 09:33
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
--- NOTE | 2017-08-13 11:26 | Pulmonology Progress Note ---
Assessment/Plan Problems: (1) UTI (urinary tract infection) (2) Non-ST elevated myocardial infarction (3) Hyperkalemia (4) Renal failure (5) History of pacemaker Assessment/Plan awaiting psych evaluation off abx, no sign of infection ID and renal consult appreciated social service consult check cultures pt/ot I discussed with [place] medical Doc yesterday and gave a report. but pt refused to be transferred. He can be sent to his previous living space or placed in a new facility Subjective ROS Limited/Unobtainable: No Constitutional: Reports: no symptoms HEENT: Repors: no symptoms Respiratory: Reports: no symptoms Allergies: Coded Allergies: No Known Allergies (Unverified , 08/10/17) Objective Last 24 Hour Vital Signs Date Time Temp Pulse Resp B/P (MAP) Pulse Ox O2 Delivery O2 Flow Rate FiO2 08/13/17 08:31 71 147/75 08/13/17 08:07 97.6 71 20 147/75 96 Room Air 08/13/17 07:40 90 20 Room Air 08/13/17 04:00 98.0 76 20 131/68 97 Room Air 08/13/17 00:00 98.1 77 20 137/74 95 Room Air 08/12/17 21:37 94 146/84 08/12/17 20:00 97.8 79 20 142/74 95 Room Air 08/12/17 20:00 86 08/12/17 19:30 94 20 Room Air 21 08/12/17 16:15 98.1 70 18 146/84 99 Room Air 08/12/17 16:00 81 08/12/17 12:45 97.5 91 18 155/90 100 Room Air 08/12/17 12:15 101 157/81 08/12/17 12:00 93 Intake and Output 08/13/17 08/14/17 19:00 07:00 Intake Total 240 ml Output Total 200 ml Balance 40 ml Intake Oral 240 ml Output Urine Total 200 ml # Voids 1 # Bowel Movements 1 General Appearance: WD/WN HEENT: normocephalic, atraumatic Respiratory/Chest: chest wall non-tender, lungs clear Cardiovascular: normal peripheral pulses, normal rate Abdomen: normal bowel sounds, soft, non tender Extremities: no clubbing Skin: no rash, no ulcers Microbiology Date/Time Source Procedure Growth Status 08/11/17 07:20 Blood Blood Culture - Preliminary NO GROWTH AFTER 24 HOURS Resulted 08/11/17 07:05 Blood Blood Culture - Preliminary NO GROWTH AFTER 24 HOURS Resulted 08/10/17 23:57 Nasal Nares MRSA Culture - Final NO METHICILLIN RESISTANT STAPH AUREUS... Complete 08/10/17 21:16 Urine,Clean Catch Urine Culture - Final NO GROWTH AFTER 48 HOURS Complete 08/10/17 23:57 Rectum VRE Culture - Final Enterococcus Faecalis - Vre Complete Laboratory Tests 08/13/17 05:00: White Blood Count 5.6, Red Blood Count 3.01L, Hemoglobin 9.1L, Hematocrit 26.4L , Mean Corpuscular Volume 88, Mean Corpuscular Hemoglobin 30.2, Mean Corpuscular Hemoglobin Concent 34.5, Red Cell Distribution Width 13.8, Platelet Count 170, Mean Platelet Volume 7.3, Neutrophils (%) (Auto) 62.0, Lymphocytes (% ) (Auto) 20.4, Monocytes (%) (Auto) 10.0, Eosinophils (%) (Auto) 6.3H, Basophils (%) (Auto) 1.3, Erythrocyte Sedimentation Rate 67H, Reticulocyte Count 1.3, Prothrombin Time 9.9, Prothromb Time International Ratio 0.9, Activated Partial Thromboplast Time 35H, Sodium Level 145, Potassium Level 3.8, Chloride Level 113H, Carbon Dioxide Level 20L, Anion Gap 12, Blood Urea Nitrogen 39H, Creatinine 1.8H, Estimat Glomerular Filtration Rate 38.1, Glucose Level 128H, Calcium Level 7.9L, Phosphorus Level 3.5, Magnesium Level 2.1, Iron Level 231H, Total Iron Binding Capacity 246L, Percent Iron Saturation 94H, Unsaturated Iron Binding 15L, Total Bilirubin 0.4, Aspartate Amino Transf (AST/ SGOT) 19, Alanine Aminotransferase (ALT/SGPT) 12, Alkaline Phosphatase 85, Lactate Dehydrogenase 247H, Total Protein 6.2L, Albumin 2.5L, Globulin 3.7, Albumin/Globulin Ratio 0.7L, Vitamin B12 Level 353, Folate 16.3 Current Medications Medications (Trade) Dose Ordered Sig/Arlet Route PRN Reason Start Time Stop Time Status Last Admin Dose Admin Acetaminophen (Tylenol) 650 mg Q4H PRN ORAL fever 08/12/17 21:00 09/10/17 20:59 Albuterol/ Ipratropium (Albuterol/ Ipratropium) 3 ml Q4H PRN HHN Shortness of Breath 08/12/17 21:00 08/17/17 20:59 Dextrose (Dextrose 50%) STAT PRN IV Hypoglycemia 08/12/17 21:00 09/11/17 20:59 Docusate Sodium (Colace) 100 mg TID ORAL 08/13/17 09:00 09/10/17 11:14 08/13/17 08:31 Heparin Sodium (Porcine) (Heparin 5000 units/ml) 5,000 units EVERY 12 HOURS SUBQ 08/12/17 22:00 09/10/17 21:59 08/13/17 08:34 Insulin Aspart (NovoLOG) BEFORE MEALS AND HS SUBQ 08/12/17 22:00 09/10/17 21:59 08/13/17 06:03 Lansoprazole (Prevacid) 30 mg DAILY ORAL 08/13/17 09:00 09/10/17 11:29 08/13/17 08:31 Metoprolol Tartrate (Lopressor) 25 mg Q12HR ORAL 08/12/17 22:00 09/11/17 21:59 08/13/17 08:31 Morphine Sulfate (Morphine Sulfate) 2 mg Q4H PRN IVP Moderate Pain (Pain Scale 4-6) 08/12/17 21:00 08/19/17 20:59 Ondansetron HCl (Zofran) 4 mg Q6H PRN IVP Nausea & Vomiting 08/12/17 21:00 09/11/17 20:59 Phenazopyridine HCl (Pyridium) 100 mg DAILYPRN PRN ORAL DYSURIA 08/13/17 09:00 09/12/17 08:59 Polyethylene Glycol (Miralax) 17 gm DAILYPRN PRN ORAL Constipation 08/12/17 21:00 09/11/17 20:59 Risperidone (RisperDAL) 1 mg BEDTIME ORAL 08/12/17 22:00 09/11/17 21:59 08/12/17 21:37 Tamsulosin HCl (Flomax) 0.4 mg BID ORAL 08/13/17 09:00 09/10/17 20:59 08/13/17 08:31 Temazepam (Restoril) 15 mg HSPRN PRN ORAL Insomnia 08/12/17 21:00 08/19/17 20:59 MADHAV WALLACE Aug 13, 2017 11:26
[2017-08-13 11:45] VITALS: BP 155/77
[2017-08-13 16:00] VITALS: BP 155/84
[2017-08-13] MEDS ORDERED: NS 500ML ONE (16:24)
[2017-08-13] MEDS ORDERED: Tubing IV Secondary IV ONE (16:24)
[2017-08-13 20:00] VITALS: BP 153/87
[2017-08-14 00:28] VITALS: BP 118/71
[2017-08-14 04:00] VITALS: BP 124/78
[2017-08-14] MEDS: NovoLOG Insulin Flexpen SUBQ SCH ×4 (05:50→21:26)
[2017-08-14 07:19] LABS: ALANINE AMINOTRANSFERASE 15 U/L (12-78); ALBUMIN/GLOBULIN RATIO 0.7 (1.0-2.7); ANION GAP 10 mmol/L (5-15); ASPARTATE AMINO TRANSFERASE 18 U/L (15-37); CALCIUM 8.3 MG/DL (8.5-10.1); CARBON DIOXIDE 23 MMOL/L (21-32); CHLORIDE 112 MMOL/L (98-107); CREATININE 1.9 MG/DL (0.55-1.30); GLOMERULAR FILTRATION RATE 35.8 mL/min (>60); MAGNESIUM 2.2 MG/DL (1.8-2.4); PHOSPHORUS 3.1 MG/DL (2.5-4.9); POTASSIUM 4.1 MMOL/L (3.5-5.1); SODIUM 145 MMOL/L (136-145); TOTAL PROTEIN 7.1 G/DL (6.4-8.2)
[2017-08-14 07:21] LABS: BASOPHILS % (AUTO) 1.1 % (0.0-2.0); EOSINOPHILS % (AUTO) 3.6 % (0.0-3.0); LYMPHOCYTES % (AUTO) 11.6 % (20.0-45.0); MEAN CORPUSCULAR HEMOGLOBIN 29.7 PG (27.0-31.0); MEAN CORPUSCULAR HGB CONC 33.8 G/DL (32.0-36.0); MEAN CORPUSCULAR VOLUME 88 FL (80-99); MEAN PLATELET VOLUME 7.2 FL (6.5-10.1); MONOCYTES % (AUTO) 8.2 % (1.0-10.0); NEUTROPHILS % (AUTO) 75.5 % (45.0-75.0); PLATELET COUNT 179 K/UL (150-450); RED BLOOD COUNT 3.39 M/UL (4.70-6.10); RED CELL DISTRIBUTION WIDTH 14.1 % (11.6-14.8); WHITE BLOOD COUNT 7.9 K/UL (4.8-10.8)
[2017-08-14 08:00] VITALS: BP 155/80
[2017-08-14] MEDS: Docusate 100mg cap ORAL SCH ×3 (08:53→17:47)
[2017-08-14] MEDS: Metoprolol 25mg tab ORAL SCH (08:56)
[2017-08-14] MEDS: Tamsulosin 0.4mg cap ORAL SCH ×2 (08:56→17:47)
[2017-08-14] MEDS: Heparin 5000 units/ml inj SUBQ SCH ×2 (08:57→21:25)
[2017-08-14 09:03] LABS: ERYTHROCYTE SEDIMENTATION RATE 71 MM/HR (0-20)
--- NOTE | 2017-08-14 09:09 | Nephrology Progress Note ---
Assessment/Plan Problem List: (1) Renal failure (2) Non-ST elevated myocardial infarction (3) Elevated troponin I level Assessment Renal failure and proteinuria Cr stable Likely Diabetic Nephropathy CAD DM HTN Anemia Plan Plan: IV iron Change diet to med CHO Gastric support monitor renal parameters- avoid nephrotoxics- Kidney SCARLET: Isoechoic area in the left kidney which does not appear cystic. Possibilities include mass or infection. Further evaluation with contrast- enhanced CT suggested if the patient is able. If not, MRI may be obtained 2D echo: Left ventricular ejection fraction estimated to be 65-7%. No evidence of left ventricular hypertrophy. anemia mejia Ok to Dc and follow up as out patient for left kidney pathology Subjective ROS Limited/Unobtainable: No Constitutional: Reports: malaise Objective Objective Last 24 Hour Vital Signs Date Time Temp Pulse Resp B/P (MAP) Pulse Ox O2 Delivery O2 Flow Rate FiO2 08/14/17 08:56 92 155/80 08/14/17 08:20 92 20 Room Air 21 08/14/17 08:00 97.7 98 18 155/80 90 Room Air 08/14/17 04:00 97.3 86 21 124/78 98 Room Air 08/14/17 00:28 98.1 82 20 118/71 97 Room Air 08/13/17 20:33 98.8 08/13/17 20:12 79 153/87 08/13/17 20:00 100.0 79 20 153/87 95 Room Air 08/13/17 16:00 98.2 74 20 155/84 94 08/13/17 12:00 96 Room Air 08/13/17 11:45 98.3 71 21 155/77 96 Room Air Laboratory Tests 08/14/17 05:55: White Blood Count 7.9, Red Blood Count 3.39L, Hemoglobin 10.1L, Hematocrit 29.8L , Mean Corpuscular Volume 88, Mean Corpuscular Hemoglobin 29.7, Mean Corpuscular Hemoglobin Concent 33.8, Red Cell Distribution Width 14.1, Platelet Count 179, Mean Platelet Volume 7.2, Neutrophils (%) (Auto) 75.5H, Lymphocytes ( %) (Auto) 11.6L, Monocytes (%) (Auto) 8.2, Eosinophils (%) (Auto) 3.6H, Basophils (%) (Auto) 1.1, Erythrocyte Sedimentation Rate 71H, Sodium Level 145, Potassium Level 4.1, Chloride Level 112H, Carbon Dioxide Level 23, Anion Gap 10 , Blood Urea Nitrogen 45H, Creatinine 1.9H, Estimat Glomerular Filtration Rate 35.8, Glucose Level 128H, Calcium Level 8.3L, Phosphorus Level 3.1, Magnesium Level 2.2, Total Bilirubin 0.5, Aspartate Amino Transf (AST/SGOT) 18, Alanine Aminotransferase (ALT/SGPT) 15, Alkaline Phosphatase 94, Total Protein 7.1, Albumin 2.9L, Globulin 4.2, Albumin/Globulin Ratio 0.7L Height (Feet): 5 Height (Inches): 2.00 Weight (Pounds): 155 General Appearance: no apparent distress Objective PE not changed MOUNIKA CORDERO Aug 14, 2017 09:09
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
--- NOTE | 2017-08-14 11:42 | Pulmonology Progress Note ---
Assessment/Plan Problems: (1) UTI (urinary tract infection) (2) Non-ST elevated myocardial infarction (3) Hyperkalemia (4) Renal failure (5) History of pacemaker Assessment/Plan awaiting psych evaluation off abx, no sign of infection ID and renal consult appreciated social service consult check cultures pt/ot \ Renal US reviewed, echogenic mass, rule out malignancy, outpatient work up Subjective ROS Limited/Unobtainable: No Constitutional: Reports: no symptoms HEENT: Repors: no symptoms Respiratory: Reports: wheezing Allergies: Coded Allergies: No Known Allergies (Unverified , 08/10/17) Objective Last 24 Hour Vital Signs Date Time Temp Pulse Resp B/P (MAP) Pulse Ox O2 Delivery O2 Flow Rate FiO2 08/14/17 08:56 92 155/80 08/14/17 08:20 92 20 Room Air 21 08/14/17 08:00 97.7 98 18 155/80 90 Room Air 08/14/17 04:00 97.3 86 21 124/78 98 Room Air 08/14/17 00:28 98.1 82 20 118/71 97 Room Air 08/13/17 20:33 98.8 08/13/17 20:12 79 153/87 08/13/17 20:00 100.0 79 20 153/87 95 Room Air 08/13/17 16:00 98.2 74 20 155/84 94 08/13/17 12:00 96 Room Air 08/13/17 11:45 98.3 71 21 155/77 96 Room Air General Appearance: WD/WN HEENT: normocephalic, mucous membranes moist Respiratory/Chest: chest wall non-tender, lungs clear Cardiovascular: normal peripheral pulses, normal rate Abdomen: normal bowel sounds, soft, non tender Genitourinary: normal external genitalia Neurologic/Psychiatric: energy conservation technician II-XII grossly normal Laboratory Tests 08/14/17 05:55: White Blood Count 7.9, Red Blood Count 3.39L, Hemoglobin 10.1L, Hematocrit 29.8L , Mean Corpuscular Volume 88, Mean Corpuscular Hemoglobin 29.7, Mean Corpuscular Hemoglobin Concent 33.8, Red Cell Distribution Width 14.1, Platelet Count 179, Mean Platelet Volume 7.2, Neutrophils (%) (Auto) 75.5H, Lymphocytes ( %) (Auto) 11.6L, Monocytes (%) (Auto) 8.2, Eosinophils (%) (Auto) 3.6H, Basophils (%) (Auto) 1.1, Erythrocyte Sedimentation Rate 71H, Sodium Level 145, Potassium Level 4.1, Chloride Level 112H, Carbon Dioxide Level 23, Anion Gap 10 , Blood Urea Nitrogen 45H, Creatinine 1.9H, Estimat Glomerular Filtration Rate 35.8, Glucose Level 128H, Calcium Level 8.3L, Phosphorus Level 3.1, Magnesium Level 2.2, Total Bilirubin 0.5, Aspartate Amino Transf (AST/SGOT) 18, Alanine Aminotransferase (ALT/SGPT) 15, Alkaline Phosphatase 94, Total Protein 7.1, Albumin 2.9L, Globulin 4.2, Albumin/Globulin Ratio 0.7L Current Medications Medications (Trade) Dose Ordered Sig/Arlet Route PRN Reason Start Time Stop Time Status Last Admin Dose Admin Acetaminophen (Tylenol) 650 mg Q4H PRN ORAL fever 08/12/17 21:00 09/10/17 20:59 Albuterol/ Ipratropium (Albuterol/ Ipratropium) 3 ml Q4H PRN HHN Shortness of Breath 08/12/17 21:00 08/17/17 20:59 Dextrose (Dextrose 50%) STAT PRN IV Hypoglycemia 08/12/17 21:00 09/11/17 20:59 Docusate Sodium (Colace) 100 mg TID ORAL 08/13/17 09:00 09/10/17 11:14 08/14/17 08:53 Heparin Sodium (Porcine) (Heparin 5000 units/ml) 5,000 units EVERY 12 HOURS SUBQ 08/12/17 22:00 09/10/17 21:59 08/14/17 08:57 Insulin Aspart (NovoLOG) BEFORE MEALS AND HS SUBQ 08/12/17 22:00 09/10/17 21:59 08/14/17 05:50 Lansoprazole (Prevacid) 30 mg DAILY ORAL 08/13/17 09:00 09/10/17 11:29 08/14/17 08:56 Metoprolol Tartrate (Lopressor) 50 mg Q12HR ORAL 08/14/17 21:00 09/13/17 20:59 Ondansetron HCl (Zofran) 4 mg Q6H PRN IVP Nausea & Vomiting 08/12/17 21:00 09/11/17 20:59 Polyethylene Glycol (Miralax) 17 gm DAILYPRN PRN ORAL Constipation 08/12/17 21:00 09/11/17 20:59 Risperidone (RisperDAL) 1 mg BEDTIME ORAL 08/12/17 22:00 09/11/17 21:59 08/13/17 20:12 Tamsulosin HCl (Flomax) 0.4 mg BID ORAL 08/13/17 09:00 09/10/17 20:59 08/14/17 08:56 Temazepam (Restoril) 15 mg HSPRN PRN ORAL Insomnia 08/12/17 21:00 08/19/17 20:59 08/13/17 22:46 MADHAV WALLACE Aug 14, 2017 11:42
[2017-08-14 12:00] VITALS: BP 152/87
[2017-08-14 16:00] VITALS: BP 151/89
[2017-08-14] MEDS: Albuterol/Ipratropium 3ml neb HHN PRN ×2 (17:23→21:43)
[2017-08-14 20:00] VITALS: BP 156/77
[2017-08-14] MEDS: Metoprolol Tartrate 50mg tab ORAL SCH (21:24)
[2017-08-15] VITALS: BP 134/81
[2017-08-15 04:00] VITALS: BP 148/87
[2017-08-15] MEDS: NovoLOG Insulin Flexpen SUBQ SCH ×4 (06:02→21:11)
[2017-08-15 08:00] VITALS: BP 142/88
[2017-08-15] MEDS: Docusate 100mg cap ORAL SCH ×3 (09:15→17:38)
[2017-08-15] MEDS: Heparin 5000 units/ml inj SUBQ SCH ×2 (09:15→21:11)
[2017-08-15] MEDS: Tamsulosin 0.4mg cap ORAL SCH ×2 (09:15→17:38)
[2017-08-15] MEDS: Metoprolol Tartrate 50mg tab ORAL SCH ×2 (09:15→21:10)
--- NOTE | 2017-08-15 10:07 | Nephrology Progress Note ---
Assessment/Plan Problem List: (1) Renal failure (2) Non-ST elevated myocardial infarction (3) Elevated troponin I level Assessment Renal failure and proteinuria Cr stable Likely Diabetic Nephropathy CAD DM HTN Anemia Plan Plan: no labs today IV iron Change diet to med CHO Gastric support monitor renal parameters- avoid nephrotoxics- Kidney SCARLET: Isoechoic area in the left kidney which does not appear cystic. Possibilities include mass or infection. Further evaluation with contrast- enhanced CT suggested if the patient is able. If not, MRI may be obtained 2D echo: Left ventricular ejection fraction estimated to be 65-7%. No evidence of left ventricular hypertrophy. anemia mejia Ok to Dc and follow up as out patient for left kidney pathology Subjective ROS Limited/Unobtainable: No Constitutional: Reports: malaise Objective Objective Last 24 Hour Vital Signs Date Time Temp Pulse Resp B/P (MAP) Pulse Ox O2 Delivery O2 Flow Rate FiO2 08/15/17 09:15 88 142/88 08/15/17 08:10 84 16 Nasal Cannula 2.0 28 08/15/17 08:00 98.2 88 20 142/88 96 Room Air 08/15/17 04:00 98.4 85 18 148/87 94 Room Air 2.0 08/15/17 00:00 98.6 86 20 134/81 91 Nasal Cannula 2.0 08/14/17 21:53 110 26 94 Nasal Cannula 3.0 08/14/17 21:43 102 28 76 Room Air 08/14/17 21:40 102 28 Room Air 08/14/17 21:24 116 156/77 08/14/17 20:00 98.4 116 19 156/77 93 Nasal Cannula 2.0 08/14/17 18:42 89 18 Nasal Cannula 3.0 32 08/14/17 17:27 106 20 96 Nasal Cannula 3.0 08/14/17 17:24 113 26 73 Room Air 08/14/17 16:00 98.1 113 20 151/89 90 Room Air 08/14/17 12:00 97.6 91 18 152/87 98 Room Air Height (Feet): 5 Height (Inches): 2.00 Weight (Pounds): 155 General Appearance: no apparent distress Cardiovascular: normal rate Respiratory/Chest: decreased breath sounds Abdomen: soft Objective PE not changed MOUNIKA CORDERO Aug 15, 2017 10:07
--- NOTE | 2017-08-15 11:13 | Diagnostic Imaging Report ---
Indication: Shortness of breath Technique: XRAY CHEST 1 V Comparison: 08/10/17 Findings: Cardiomediastinal silhouette is stable. There is a left chest pacemaker. There is no central pulmonary vascular congestion and pulmonary edema. Mild to moderate bilateral pleural effusions are present. Impression: Congestive heart failure with mild to moderate bilateral pleural effusions.
[2017-08-15 12:00] VITALS: BP 136/80
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
[2017-08-15 16:00] VITALS: BP 136/82
--- NOTE | 2017-08-15 16:24 | Pulmonology Progress Note ---
Assessment/Plan Problems: (1) UTI (urinary tract infection) (2) Non-ST elevated myocardial infarction (3) Hyperkalemia (4) Renal failure (5) History of pacemaker Assessment/Plan awaiting psych evaluation off abx, no sign of infection ID and renal consult appreciated social service consult check cultures pt/ot \ Renal US reviewed, echogenic mass, rule out malignancy, outpatient work up Subjective ROS Limited/Unobtainable: No Allergies: Coded Allergies: No Known Allergies (Unverified , 08/10/17) Objective Last 24 Hour Vital Signs Date Time Temp Pulse Resp B/P (MAP) Pulse Ox O2 Delivery O2 Flow Rate FiO2 08/15/17 09:15 88 142/88 08/15/17 08:10 84 16 Nasal Cannula 2.0 28 08/15/17 08:00 98.2 88 20 142/88 96 Room Air 08/15/17 04:00 98.4 85 18 148/87 94 Room Air 2.0 08/15/17 00:00 98.6 86 20 134/81 91 Nasal Cannula 2.0 08/14/17 21:53 110 26 94 Nasal Cannula 3.0 08/14/17 21:43 102 28 76 Room Air 08/14/17 21:40 102 28 Room Air 08/14/17 21:24 116 156/77 08/14/17 20:00 98.4 116 19 156/77 93 Nasal Cannula 2.0 08/14/17 18:42 89 18 Nasal Cannula 3.0 32 08/14/17 17:27 106 20 96 Nasal Cannula 3.0 08/14/17 17:24 113 26 73 Room Air Objective General Appearance: WD/WN HEENT: normocephalic, anicteric Cardiovascular: normal peripheral pulses, normal rate Abdomen: normal bowel sounds, no organomegaly Genitourinary: normal external genitalia Extremities: no clubbing Skin: no lesions Lymphatic: no neck adenopathy Current Medications Medications (Trade) Dose Ordered Sig/Arlet Route PRN Reason Start Time Stop Time Status Last Admin Dose Admin Acetaminophen (Tylenol) 650 mg Q4H PRN ORAL fever 08/12/17 21:00 09/10/17 20:59 Albuterol/ Ipratropium (Albuterol/ Ipratropium) 3 ml Q4H PRN HHN Shortness of Breath 08/12/17 21:00 08/17/17 20:59 08/14/17 21:43 Dextrose (Dextrose 50%) STAT PRN IV Hypoglycemia 08/12/17 21:00 09/11/17 20:59 Docusate Sodium (Colace) 100 mg TID ORAL 08/13/17 09:00 09/10/17 11:14 08/15/17 13:23 Heparin Sodium (Porcine) (Heparin 5000 units/ml) 5,000 units EVERY 12 HOURS SUBQ 08/12/17 22:00 09/10/17 21:59 08/15/17 09:15 Insulin Aspart (NovoLOG) BEFORE MEALS AND HS SUBQ 08/12/17 22:00 09/10/17 21:59 08/15/17 13:24 Lansoprazole (Prevacid) 30 mg DAILY ORAL 08/13/17 09:00 09/10/17 11:29 08/15/17 09:15 Metoprolol Tartrate (Lopressor) 50 mg Q12HR ORAL 08/14/17 21:00 09/13/17 20:59 08/15/17 09:15 Ondansetron HCl (Zofran) 4 mg Q6H PRN IVP Nausea & Vomiting 08/12/17 21:00 09/11/17 20:59 Polyethylene Glycol (Miralax) 17 gm DAILYPRN PRN ORAL Constipation 08/12/17 21:00 09/11/17 20:59 Risperidone (RisperDAL) 1 mg BEDTIME ORAL 08/12/17 22:00 09/11/17 21:59 08/14/17 21:24 Tamsulosin HCl (Flomax) 0.4 mg BID ORAL 08/13/17 09:00 09/10/17 20:59 08/15/17 09:15 Temazepam (Restoril) 15 mg HSPRN PRN ORAL Insomnia 08/12/17 21:00 08/19/17 20:59 08/14/17 22:18 MADHAV WALLACE Aug 15, 2017 16:24
[2017-08-15 20:00] VITALS: BP 171/92
[2017-08-15] MEDS: Albuterol/Ipratropium 3ml neb HHN PRN (21:42)
[2017-08-16 00:05] VITALS: BP 138/81
[2017-08-16 04:00] VITALS: BP 147/88
[2017-08-16] MEDS: NovoLOG Insulin Flexpen SUBQ SCH ×4 (06:02→20:37)
[2017-08-16 08:00] VITALS: BP 144/86
[2017-08-16 08:54] LABS: ALANINE AMINOTRANSFERASE 39 U/L (12-78); ALBUMIN/GLOBULIN RATIO 0.6 (1.0-2.7); ANION GAP 8 mmol/L (5-15); ASPARTATE AMINO TRANSFERASE 34 U/L (15-37); CARBON DIOXIDE 24 MMOL/L (21-32); CHLORIDE 113 MMOL/L (98-107); CREATININE 1.8 MG/DL (0.55-1.30); GLOMERULAR FILTRATION RATE 38.1 mL/min (>60); MAGNESIUM 2.4 MG/DL (1.8-2.4); PHOSPHORUS 3.1 MG/DL (2.5-4.9); POTASSIUM 3.4 MMOL/L (3.5-5.1); SODIUM 145 MMOL/L (136-145); TOTAL PROTEIN 6.6 G/DL (6.4-8.2)
[2017-08-16 08:55] LABS: BASOPHILS % (AUTO) 1.2 % (0.0-2.0); EOSINOPHILS % (AUTO) 1.1 % (0.0-3.0); LYMPHOCYTES % (AUTO) 20.8 % (20.0-45.0); MEAN CORPUSCULAR HEMOGLOBIN 27.8 PG (27.0-31.0); MEAN CORPUSCULAR HGB CONC 31.5 G/DL (32.0-36.0); MEAN CORPUSCULAR VOLUME 88 FL (80-99); MEAN PLATELET VOLUME 7.3 FL (6.5-10.1); MONOCYTES % (AUTO) 14.9 % (1.0-10.0); PLATELET COUNT 177 K/UL (150-450); RED CELL DISTRIBUTION WIDTH 14.8 % (11.6-14.8)
[2017-08-16] MEDS: Metoprolol Tartrate 50mg tab ORAL SCH ×2 (09:54→20:35)
[2017-08-16] MEDS: Docusate 100mg cap ORAL SCH ×3 (09:54→17:16)
[2017-08-16] MEDS: Tamsulosin 0.4mg cap ORAL SCH ×2 (09:54→17:15)
[2017-08-16] MEDS: Heparin 5000 units/ml inj SUBQ SCH ×2 (09:55→20:36)
[2017-08-16 10:13] LABS: ERYTHROCYTE SEDIMENTATION RATE 108 MM/HR (0-20)
--- NOTE | 2017-08-16 11:08 | Nephrology Progress Note ---
Assessment/Plan Problem List: (1) Renal failure (2) Non-ST elevated myocardial infarction (3) Elevated troponin I level Assessment Renal failure and proteinuria Cr stable Likely Diabetic Nephropathy CAD DM HTN Anemia Plan Plan: KCL PO IV iron Change diet to med CHO Gastric support monitor renal parameters- avoid nephrotoxics- Kidney SCARLET: Isoechoic area in the left kidney which does not appear cystic. Possibilities include mass or infection. Further evaluation with contrast- enhanced CT suggested if the patient is able. If not, MRI may be obtained 2D echo: Left ventricular ejection fraction estimated to be 65-7%. No evidence of left ventricular hypertrophy. anemia mejia Ok to Dc and follow up as out patient for left kidney pathology Subjective ROS Limited/Unobtainable: No Constitutional: Reports: malaise Objective Objective Last 24 Hour Vital Signs Date Time Temp Pulse Resp B/P (MAP) Pulse Ox O2 Delivery O2 Flow Rate FiO2 08/16/17 09:54 74 147/88 08/16/17 08:07 74 18 Nasal Cannula 4.0 36 08/16/17 08:00 97.9 22 144/86 96 Nasal Cannula 3.0 08/16/17 04:00 98.1 20 147/88 98 Nasal Cannula 4.0 08/16/17 00:05 98.8 82 21 138/81 96 08/15/17 21:52 91 20 97 Nasal Cannula 4.0 36 08/15/17 21:46 36 08/15/17 21:45 85 22 91 Nasal Cannula 4.0 36 08/15/17 21:42 85 22 Nasal Cannula 4.0 36 08/15/17 21:10 110 171/92 08/15/17 20:00 98.9 104 24 171/92 90 08/15/17 16:00 98.2 18 18 136/82 94 Nasal Cannula 2.0 08/15/17 12:00 98.1 87 20 136/80 95 Nasal Cannula 2.0 Intake and Output 08/16/17 08/17/17 19:00 07:00 # Voids 3 Laboratory Tests 08/16/17 07:50: White Blood Count 7.0, Red Blood Count 3.10L, Hemoglobin 8.6L, Hematocrit 27.3L , Mean Corpuscular Volume 88, Mean Corpuscular Hemoglobin 27.8, Mean Corpuscular Hemoglobin Concent 31.5L, Red Cell Distribution Width 14.8, Platelet Count 177, Mean Platelet Volume 7.3, Neutrophils (%) (Auto) 62.0, Lymphocytes (%) (Auto) 20.8, Monocytes (%) (Auto) 14.9H, Eosinophils (%) (Auto) 1.1, Basophils (%) (Auto) 1.2, Erythrocyte Sedimentation Rate 108H, Sodium Level 145, Potassium Level 3.4L, Chloride Level 113H, Carbon Dioxide Level 24, Anion Gap 8, Blood Urea Nitrogen 52H, Creatinine 1.8H, Estimat Glomerular Filtration Rate 38.1, Glucose Level 108H, Calcium Level 8.0L, Phosphorus Level 3.1, Magnesium Level 2.4, Total Bilirubin 0.7, Aspartate Amino Transf (AST/SGOT ) 34, Alanine Aminotransferase (ALT/SGPT) 39, Alkaline Phosphatase 108, Total Protein 6.6, Albumin 2.4L, Globulin 4.2, Albumin/Globulin Ratio 0.6L Height (Feet): 5 Height (Inches): 2.00 Weight (Pounds): 155 General Appearance: no apparent distress Objective PE not changed MOUNIKA CORDERO Aug 16, 2017 11:08
[2017-08-16] MEDS ORDERED: KCl 10% 40mEq/30ml liquid ORAL ONE (11:45)
[2017-08-16 12:00] VITALS: BP 140/88
--- NOTE | 2017-08-16 14:23 | Pulmonology Progress Note ---
Assessment/Plan Problems: (1) UTI (urinary tract infection) (2) Non-ST elevated myocardial infarction (3) Hyperkalemia (4) Renal failure (5) History of pacemaker Assessment/Plan awaiting psych evaluation off abx, no sign of infection ID and renal consult appreciated social service consult check cultures pt/ot \ dc planning in progress Renal US reviewed, echogenic mass, rule out malignancy, outpatient work up Subjective ROS Limited/Unobtainable: No Constitutional: Reports: no symptoms Respiratory: Reports: no symptoms Allergies: Coded Allergies: No Known Allergies (Unverified , 08/10/17) Objective Last 24 Hour Vital Signs Date Time Temp Pulse Resp B/P (MAP) Pulse Ox O2 Delivery O2 Flow Rate FiO2 08/16/17 12:00 97.8 20 140/88 94 Nasal Cannula 3.0 08/16/17 09:54 74 147/88 08/16/17 08:07 74 18 Nasal Cannula 4.0 36 08/16/17 08:00 97.9 22 144/86 96 Nasal Cannula 3.0 08/16/17 04:00 98.1 20 147/88 98 Nasal Cannula 4.0 08/16/17 00:05 98.8 82 21 138/81 96 08/15/17 21:52 91 20 97 Nasal Cannula 4.0 36 08/15/17 21:46 36 08/15/17 21:45 85 22 91 Nasal Cannula 4.0 36 08/15/17 21:42 85 22 Nasal Cannula 4.0 36 08/15/17 21:10 110 171/92 08/15/17 20:00 98.9 104 24 171/92 90 08/15/17 16:00 98.2 18 18 136/82 94 Nasal Cannula 2.0 Intake and Output 08/16/17 08/17/17 19:00 07:00 # Voids 3 Objective General Appearance: WD/WN HEENT: normocephalic, anicteric Cardiovascular: normal peripheral pulses, normal rate Abdomen: normal bowel sounds, no organomegaly Genitourinary: normal external genitalia Extremities: no clubbing Skin: no lesions Lymphatic: no neck adenopathy Laboratory Tests 08/16/17 07:50: White Blood Count 7.0, Red Blood Count 3.10L, Hemoglobin 8.6L, Hematocrit 27.3L , Mean Corpuscular Volume 88, Mean Corpuscular Hemoglobin 27.8, Mean Corpuscular Hemoglobin Concent 31.5L, Red Cell Distribution Width 14.8, Platelet Count 177, Mean Platelet Volume 7.3, Neutrophils (%) (Auto) 62.0, Lymphocytes (%) (Auto) 20.8, Monocytes (%) (Auto) 14.9H, Eosinophils (%) (Auto) 1.1, Basophils (%) (Auto) 1.2, Erythrocyte Sedimentation Rate 108H, Sodium Level 145, Potassium Level 3.4L, Chloride Level 113H, Carbon Dioxide Level 24, Anion Gap 8, Blood Urea Nitrogen 52H, Creatinine 1.8H, Estimat Glomerular Filtration Rate 38.1, Glucose Level 108H, Calcium Level 8.0L, Phosphorus Level 3.1, Magnesium Level 2.4, Total Bilirubin 0.7, Aspartate Amino Transf (AST/SGOT ) 34, Alanine Aminotransferase (ALT/SGPT) 39, Alkaline Phosphatase 108, Total Protein 6.6, Albumin 2.4L, Globulin 4.2, Albumin/Globulin Ratio 0.6L Current Medications Medications (Trade) Dose Ordered Sig/Arlet Route PRN Reason Start Time Stop Time Status Last Admin Dose Admin Acetaminophen (Tylenol) 650 mg Q4H PRN ORAL fever 08/12/17 21:00 09/10/17 20:59 Albuterol/ Ipratropium (Albuterol/ Ipratropium) 3 ml Q4H PRN HHN Shortness of Breath 08/12/17 21:00 08/17/17 20:59 08/15/17 21:42 Dextrose (Dextrose 50%) STAT PRN IV Hypoglycemia 08/12/17 21:00 09/11/17 20:59 Docusate Sodium (Colace) 100 mg TID ORAL 08/13/17 09:00 09/10/17 11:14 08/16/17 13:07 Heparin Sodium (Porcine) (Heparin 5000 units/ml) 5,000 units EVERY 12 HOURS SUBQ 08/12/17 22:00 09/10/17 21:59 08/16/17 09:55 Insulin Aspart (NovoLOG) BEFORE MEALS AND HS SUBQ 08/12/17 22:00 09/10/17 21:59 08/16/17 13:05 Lansoprazole (Prevacid) 30 mg DAILY ORAL 08/13/17 09:00 09/10/17 11:29 08/16/17 09:54 Metoprolol Tartrate (Lopressor) 50 mg Q12HR ORAL 08/14/17 21:00 09/13/17 20:59 08/16/17 09:54 Ondansetron HCl (Zofran) 4 mg Q6H PRN IVP Nausea & Vomiting 08/12/17 21:00 09/11/17 20:59 Polyethylene Glycol (Miralax) 17 gm DAILYPRN PRN ORAL Constipation 08/12/17 21:00 09/11/17 20:59 Risperidone (RisperDAL) 1 mg BEDTIME ORAL 08/12/17 22:00 09/11/17 21:59 08/15/17 21:09 Tamsulosin HCl (Flomax) 0.4 mg BID ORAL 08/13/17 09:00 09/10/17 20:59 08/16/17 09:54 Temazepam (Restoril) 15 mg HSPRN PRN ORAL Insomnia 08/12/17 21:00 08/19/17 20:59 08/14/17 22:18 MADHAV WALLACE Aug 16, 2017 14:23
[2017-08-16 16:00] VITALS: BP 138/86
[2017-08-16 20:00] VITALS: BP 155/91
[2017-08-17] VITALS (7 sets, daily range): BP systolic 132–162; BP diastolic 67–91
[2017-08-17] MEDS: NovoLOG Insulin Flexpen SUBQ SCH ×4 (06:30→21:00)
[2017-08-17] MEDS: Docusate 100mg cap ORAL SCH ×3 (08:25→17:21)
[2017-08-17] MEDS: Metoprolol Tartrate 50mg tab ORAL SCH ×2 (08:27→22:04)
[2017-08-17] MEDS: Tamsulosin 0.4mg cap ORAL SCH ×2 (08:28→17:21)
[2017-08-17] MEDS: Heparin 5000 units/ml inj SUBQ SCH ×2 (08:29→22:05)
--- NOTE | 2017-08-17 11:14 | Nephrology Progress Note ---
Assessment/Plan Problem List: (1) Renal failure (2) Non-ST elevated myocardial infarction (3) Elevated troponin I level Assessment Renal failure and proteinuria Cr stable Likely Diabetic Nephropathy CAD DM HTN Anemia Plan Plan: KCL PO IV iron Change diet to med CHO Gastric support monitor renal parameters- avoid nephrotoxics- Kidney SCARLET: Isoechoic area in the left kidney which does not appear cystic. Possibilities include mass or infection. Further evaluation with contrast- enhanced CT suggested if the patient is able. If not, MRI may be obtained 2D echo: Left ventricular ejection fraction estimated to be 65-7%. No evidence of left ventricular hypertrophy. anemia mejia Ok to Dc and follow up as out patient for left kidney pathology Subjective ROS Limited/Unobtainable: No Constitutional: Reports: malaise Objective Objective Last 24 Hour Vital Signs Date Time Temp Pulse Resp B/P (MAP) Pulse Ox O2 Delivery O2 Flow Rate FiO2 08/17/17 08:27 66 149/73 08/17/17 08:00 98.8 66 20 149/73 97 08/17/17 08:00 Nasal Cannula 2.0 08/17/17 07:32 71 18 Nasal Cannula 2.0 28 08/17/17 04:00 97.0 69 20 158/86 97 Nasal Cannula 2.0 08/17/17 00:00 97.3 62 20 137/73 100 Nasal Cannula 3.0 08/16/17 23:38 79 18 Nasal Cannula 4.0 36 08/16/17 21:28 87 18 Nasal Cannula 4.0 36 08/16/17 20:35 73 155/91 08/16/17 20:00 97.9 73 18 155/91 97 Nasal Cannula 3.0 08/16/17 16:00 97.8 76 20 138/86 96 Nasal Cannula 3.0 08/16/17 12:00 97.8 20 140/88 94 Nasal Cannula 3.0 Intake and Output 08/17/17 08/18/17 19:00 07:00 Intake Total 200 ml Output Total 600 ml Balance -400 ml Intake Oral 200 ml Output Urine Total 600 ml Height (Feet): 5 Height (Inches): 2.00 Weight (Pounds): 155 General Appearance: no apparent distress Objective PE not changed MOUNIKA CORDERO Aug 17, 2017 11:14
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
--- NOTE | 2017-08-17 13:49 | Pulmonology Progress Note ---
Assessment/Plan Problems: (1) UTI (urinary tract infection) (2) Non-ST elevated myocardial infarction (3) Hyperkalemia (4) Renal failure (5) History of pacemaker Assessment/Plan psych evaluation off abx, no sign of infection ID and renal consult appreciated social service consult check cultures pt/ot \ dc planning in progress Renal US reviewed, echogenic mass, rule out malignancy, outpatient work up Subjective ROS Limited/Unobtainable: No Constitutional: Reports: no symptoms HEENT: Repors: no symptoms Respiratory: Reports: no symptoms Allergies: Coded Allergies: No Known Allergies (Unverified , 08/10/17) Objective Last 24 Hour Vital Signs Date Time Temp Pulse Resp B/P (MAP) Pulse Ox O2 Delivery O2 Flow Rate FiO2 08/17/17 12:15 97 Nasal Cannula 2.0 08/17/17 12:00 89 Room Air 08/17/17 12:00 97.2 63 17 132/67 08/17/17 08:27 66 149/73 08/17/17 08:00 98.8 66 20 149/73 97 08/17/17 08:00 Nasal Cannula 2.0 08/17/17 07:32 71 18 Nasal Cannula 2.0 28 08/17/17 04:00 97.0 69 20 158/86 97 Nasal Cannula 2.0 08/17/17 00:00 97.3 62 20 137/73 100 Nasal Cannula 3.0 08/16/17 23:38 79 18 Nasal Cannula 4.0 36 08/16/17 21:28 87 18 Nasal Cannula 4.0 36 08/16/17 20:35 73 155/91 08/16/17 20:00 97.9 73 18 155/91 97 Nasal Cannula 3.0 08/16/17 16:00 97.8 76 20 138/86 96 Nasal Cannula 3.0 Intake and Output 08/17/17 08/18/17 19:00 07:00 Intake Total 200 ml Output Total 600 ml Balance -400 ml Intake Oral 200 ml Output Urine Total 600 ml Objective General Appearance: WD/WN HEENT: normocephalic, anicteric Cardiovascular: normal peripheral pulses, normal rate Abdomen: normal bowel sounds, no organomegaly Genitourinary: normal external genitalia Extremities: no clubbing Skin: no lesions Lymphatic: no neck adenopathy Current Medications Medications (Trade) Dose Ordered Sig/Arlet Route PRN Reason Start Time Stop Time Status Last Admin Dose Admin Acetaminophen (Tylenol) 650 mg Q4H PRN ORAL fever 08/12/17 21:00 09/10/17 20:59 Albuterol/ Ipratropium (Albuterol/ Ipratropium) 3 ml Q4H PRN HHN Shortness of Breath 08/12/17 21:00 08/17/17 20:59 08/15/17 21:42 Dextrose (Dextrose 50%) STAT PRN IV Hypoglycemia 08/12/17 21:00 09/11/17 20:59 Docusate Sodium (Colace) 100 mg TID ORAL 08/13/17 09:00 09/10/17 11:14 08/17/17 12:49 Heparin Sodium (Porcine) (Heparin 5000 units/ml) 5,000 units EVERY 12 HOURS SUBQ 08/12/17 22:00 09/10/17 21:59 08/17/17 08:29 Insulin Aspart (NovoLOG) BEFORE MEALS AND HS SUBQ 08/12/17 22:00 09/10/17 21:59 08/16/17 20:37 Lansoprazole (Prevacid) 30 mg DAILY ORAL 08/13/17 09:00 09/10/17 11:29 08/17/17 08:26 Metoprolol Tartrate (Lopressor) 50 mg Q12HR ORAL 08/14/17 21:00 09/13/17 20:59 08/17/17 08:27 Ondansetron HCl (Zofran) 4 mg Q6H PRN IVP Nausea & Vomiting 08/12/17 21:00 09/11/17 20:59 Polyethylene Glycol (Miralax) 17 gm DAILYPRN PRN ORAL Constipation 08/12/17 21:00 09/11/17 20:59 Risperidone (RisperDAL) 1 mg BEDTIME ORAL 08/12/17 22:00 09/11/17 21:59 08/16/17 20:35 Tamsulosin HCl (Flomax) 0.4 mg BID ORAL 08/13/17 09:00 09/10/17 20:59 08/17/17 08:28 Temazepam (Restoril) 15 mg HSPRN PRN ORAL Insomnia 08/12/17 21:00 08/19/17 20:59 08/14/17 22:18 MADHAV WALLACE Aug 17, 2017 13:49
[2017-08-17] MEDS ORDERED: ACETAMINOPHEN325 M1 ORAL (20:44)
[2017-08-17] MEDS ORDERED: COLACE100 MG ORAL (20:45)
[2017-08-17] MEDS ORDERED: HEPARIN SO5000 UNIT2 SUBQ (20:46)
[2017-08-17] MEDS ORDERED: NOVOLOG100 UNIT/3 SUBQ (20:47)
[2017-08-17] MEDS ORDERED: DUONEB 0.5-3(2.53 ML HHN (20:52)
[2017-08-17] MEDS ORDERED: METOPROLOL TART50 M1 ORAL (20:53)
[2017-08-17] MEDS ORDERED: LANSOPRAZOLE30 MG ORAL (20:53)
[2017-08-17] MEDS ORDERED: ZOFRAN 4 MG4 MG/2 ML IV (20:54)
[2017-08-17] MEDS ORDERED: MIRALAX17 G2 ORAL (20:55)
[2017-08-17] MEDS ORDERED: RISPERDAL1 MG PO (20:55)
[2017-08-17] MEDS ORDERED: TEMAZEPAM15 MG ORAL (20:56)
[2017-08-17] MEDS ORDERED: TAMSULOSIN HCL0.4 MG ORAL (20:56)
--- NOTE | 2017-08-17 23:25 | General Progress Note ---
Assessment/Plan Status: stable Subjective Neurologic/Psychiatric: Reports: anxiety, depressed, emotional problems Allergies: Coded Allergies: No Known Allergies (Unverified , 08/10/17) Subjective the pt is still confused and disorganized Objective Last 24 Hour Vital Signs Date Time Temp Pulse Resp B/P (MAP) Pulse Ox O2 Delivery O2 Flow Rate FiO2 08/17/17 22:04 82 132/80 08/17/17 20:04 98.1 82 20 132/80 91 Room Air 08/17/17 17:17 72 162/91 08/17/17 16:00 97.0 72 19 162/91 08/17/17 16:00 97 Nasal Cannula 2.0 08/17/17 12:15 97 Nasal Cannula 2.0 08/17/17 12:00 89 Room Air 08/17/17 12:00 97.2 63 17 132/67 08/17/17 08:27 66 149/73 08/17/17 08:00 98.8 66 20 149/73 97 08/17/17 08:00 Nasal Cannula 2.0 08/17/17 07:32 71 18 Nasal Cannula 2.0 28 08/17/17 04:00 97.0 69 20 158/86 97 Nasal Cannula 2.0 08/17/17 00:00 97.3 62 20 137/73 100 Nasal Cannula 3.0 08/16/17 23:38 79 18 Nasal Cannula 4.0 36 Intake and Output 08/17/17 08/18/17 19:00 07:00 Intake Total 350 ml Output Total 1350 ml Balance -1000 ml Intake Oral 350 ml Output Urine Total 1350 ml Height (Feet): 5 Height (Inches): 2.00 Weight (Pounds): 155 General Appearance: no apparent distress, alert, confused Anju Sena M.D. Aug 17, 2017 23:25
--- NOTE | 2017-08-18 15:29 | Discharge Summary ---
Discharge Summary Hospital Course Date of Admission Aug 10, 2017 at 23:20 Date of Discharge Aug 17, 2017 at 23:29 Admitting Diagnosis RENAL FAILURE DANA Gurrola is a 67 year old male who was admitted on Aug 10, 2017 at 23:20 for Renal Failure Hospital Course dc summary #[id number] Discharge Medications Continued Medications: Acetaminophen* (Acetaminophen 325MG Tablet*) 325 Mg Tablet 650 MG ORAL Q4H PRN for FEVER, TAB Docusate Sodium* (Colace*) 100 Mg Capsule 100 MG ORAL THREE TIMES A DAY, CAP Heparin Sod (Porcine) (Heparin Sodium*) 5 000/1 Ml Vial 5000 UNITS SUBQ EVERY 12 HOURS, VIAL Insulin Aspart* (Novolog*) 100 Unit/1 Ml Insuln.pen 0 SUBQ AC+HS, #1 EA 0 Refills Ipratropium/Albuterol Sulfate (DuoNeb 0.5-3(2.5)mg/3ml) 3 Ml Ampul.neb 3 ML HHN EVERY 4 HOURS PRN for PRN SHORTNESS OF BREATH, EA Lansoprazole* (Lansoprazole*) 30 Mg Capsule.dr 30 MG ORAL DAILY, CAP Metoprolol Tartrate* (Metoprolol Tartrate*) 50 Mg Tablet 50 MG ORAL EVERY 12 HOURS, TAB Ondansetron* (Zofran*) 4 Mg/2 Ml Vial 4 MG IV Q6H PRN for Nausea & Vomiting, VIAL Polyethylene Glycol 3350* (Miralax*) 17 Gm Powd.pack 17 GM ORAL DAILY PRN for PRN CONSTIPATION, PACKET Risperidone* (Risperdal*) 1 Mg Tablet 1 MG PO BEDTIME, TAB Tamsulosin Hcl (Tamsulosin Hcl*) 0.4 Mg Cap.er.24h 0.4 MG ORAL BEDTIME, CAP Temazepam (Temazepam*) 15 Mg Capsule 15 MG ORAL BEDTIME PRN for PRN INSOMNIA, #30 CAP 0 Refills Discharge Condition Upon Discharge: stable Discharge Disposition Patient was discharged to SNF/Subacute Facility(03) Discharge Diagnoses: Discharge Instructions Discharge Instructions Special Instructions I have been assigned to complete a D/C Summary on this account. I was not involved in the patient management Esthela Parker NP ([facility]) Aug 18, 2017 15:29
--- NOTE | 2017-08-18 23:15 | Discharge Summary 2 SIG ---
DATE OF ADMISSION: 08/10/2017 DATE OF DISCHARGE: 08/17/2017 REASON FOR ADMISSION: 67-year-old male with history of diabetes and pacemaker placement, presented to the emergency department with complaint of headache for the past few days. He also reported general weakness. He was found to be in renal failure and had positive troponin. Potassium -5.3, BUN- 62, creatinine -2.3. Troponin -0.389. EKG revealed V-pacing rhythm. Chest x-ray revealed no acute cardiopulmonary disease. CT of the head revealed no acute intracranial pathology. Urinalysis with possible UTI. The patient admitted with elevated troponin, possible non-STEMI, hyperkalemia, renal failure, pacemaker, and possible UTI. HOSPITAL STAY: The patient was admitted. Nephrology and cardiology consults along with ID consult were requested. Urine culture was negative. Blood cultures were negative. Antibiotic stopped. No clinical evidence of infection. ID recommended to keep the patient off antibiotic. Graphic Design Intern closely followed. Renal failure likely secondary to diabetic nephropathy, +4 protein in the urine. Hyperkalemia treated and stable afterwards. Renal parameters slowly improved with some hydration. BUN down to 52 and creatinine down to 1.8. Renal ultrasound revealed no hydronephrosis,but demonstrated isoechoic mass left kidney, which did not appeared to be cystic. CT with contrast was recommended for further management to rule out malignancy versus infection. Serial troponin were elevated. The patient on telemetry demonstrated V-pacing rhythm. Echocardiogram revealed preserved ejection fraction of 65% to 70%. According to alodize machine helper, the patient had abnormal cardiac enzymes, but no signs or symptoms to suggest coronary syndrome, and abnormal elevated troponin was likely related to renal failure. Lipid panel was stable. Anemia workup revealed low iron and evidence of anemia of chronic disease. IV iron provided. Blood sugar was managed with sliding scale of insulin. Supplemental oxygen provided as needed to keep saturation above 92%. Pulmonary toilet provided as needed. Blood pressure was managed with current regimen and was stable. DVT prophylaxis provided. Bowel regimen instituted. Psychiatrist had seen and evaluated the patient, diagnosed the patient with psychotic disorder and cognitive impairment. Per psychiatrist, the patient lacked capacity to make his own informed decision. The patient was working with physical and occupational therapists. Transfer was arranged to senior living [facility], as per insurance assignment. The patient was stable for discharge. Unable to do CT with contrast due to high creatinine. Outpatient MRI recommended for workup of isoechoic mass left kidney. FINAL DIAGNOSES: 1. Renal failure with proteinuria 2. Likely diabetic nephropathy. 3. Hyperkalemia, resolved. 4. Elevated troponin. 5. Possible [id number] myocardial infarction. 6. Pacemaker. 7. Diabetes mellitus. 8. Hypertension. 9. Chronic obstructive pulmonary disease. 10. Coronary artery disease. 11. Psychotic disorder. 12. Cognitive impairment. 13. Isoechoic mass left kidney ( per imaging) DISCHARGE MEDICATIONS: See medication reconciliation list. DISCHARGE INSTRUCTIONS: The patient discharged to senior living facility. FOLLOWUP: Follow up with medical doctor at the facility. Follow up with outpatient MRI for workup of hypoechoic mass. Gena Stroud M.D. I have been assigned to dictate discharge summary on this account and I was not involved in the patient's management. Esthela FajardoMassena Memorial HospitalThom N.P. DR: VILMA JOB#: [id number] CC: SOLEDAD
== END 2017-08-17 23:29 | DRG 425 ==
LOC: EDBD 20:24 → EMR 21:01 → 2E 23:20 → EDBEDREQ 23:26 → 4E 08-12 20:30
DX: E87.5 Hyperkalemia (principal); I21.4 Non-ST elevation (NSTEMI) myocardial infarction; E11.21 Type 2 diabetes mellitus with diabetic nephropathy; N39.0 Urinary tract infection, site not specified; J44.9 Chronic obstructive pulmonary disease, unspecified; I10 Essential (primary) hypertension; D64.9 Anemia, unspecified; I25.10 Atherosclerotic heart disease of native coronary artery without angina pectoris; Z95.0 Presence of cardiac pacemaker; N28.89 Other specified disorders of kidney and ureter; R51 Headache; F29 Unspecified psychosis not due to a substance or known physiological condition; N19 Unspecified kidney failure; G31.84 Mild cognitive impairment of uncertain or unknown etiology; Y09 Assault by unspecified means
CPT/HCPCS: 36415; 70450; 71010; 76775; 80053; 80061; 81003; 82550; 82553; 82607; 82728; 82746; 82962; 82977; 83036; 83540; 83550; 83615; 83690; 83735; 83880; 84100; 84443; 84484; 84550; 85025; 85044; 85060; 85610; 85651; 85730; 86140; 87040; 87081; 87086; 93005; 93306; 94640; 94664; 99285; J1815; J7620; J8499